=== PATIENT | female | born 1945 | race Caucasian/White ===

== ENCOUNTER 2024-10-19 02:17 | Day surgery (SDC) | payer MEDICARE, OTHER, SELFPAY ==
[2024-10-18 14:20] VITALS: BMI 30.1
--- OUTSIDE RECORDS SUMMARY | 2024-10-19 02:22 | XMS_ITS | Continuity of Care Document ---
Author Organization [facility] Address [address] [facility] [address] [place] [address] Phone Care Team Providers Care Line Pilot Name Role Phone Ignacio Acosta MD Unavailable Unavailable Allergies, Adverse Reactions, Alerts Substance Reaction Status Criticality adhesive tape Unknown Active No Information PROPOXYPHENE NAPSYLATE Unknown Active No In formation acetaminophen Unknown Active No Information Medications Medication Instructions Dosage Effective Dates (start - stop) Status Comments Cequa 0.09 % eye drops in a dropperette instill 1 drop by ophthalmic route 2 times every day into affected eye(s) approximately 12 hours apart 1.00 drop - Active ofloxacin 0.3 % eye drops instill 1 drop by ophthalmic route 4 times every day into affected eye(s) for OD 1.00 drop - Active Pataday Once Daily Relief 0.2 % eye drops instill 1 drop by ophthalmic route every day into affected eye(s) 1.00 drop - Active oasis tears OPHTHALMIC DROPS as needed - Active Cequa 0.09 % eye drops in a dropperette instill 1 drop by ophthalmic route 2 times every day into affected eye(s) approximately 12 hours apart 1.00 drop - No Longer Active Procedures Procedure Date OFFICE/OUTPATIENT VISIT, EST Advance Directives Directive Yes / No Effective Date File Name No Information Encounters Encounter Description Practice Location Reason(s) For Visit Diagnoses Date Provider Providers Copied on Encounter [facility], [address] [facility] [address], [place], [place], [id number], [place] tel:[phone] [facility]LLO No Information 5 Dave Pierre. [address] [facility], [address], [place], [address], [place]. tel:[phone] Referring Provider: Gume Ness, [address] [place] [address] [address], [place], [address]. tel:[phone] OFFICE/OUTPA TIENT VISIT, [facility], [address] [place], [place] [address] [address], [place], [id number], tel:[phone] [facility] Follow Up of Dry eyes (chief complaint) Follow Up of AMT OU (chief complaint) Punctate keratitis, bilateralDry eyes, bilateralSquam ous blepharitis right eye, upper and lower eyelidsSquamou s blepharitis left eye, upper and lower eyelidsMeibomi an gland dysfunction right eye, upper and lower eyelidsMeibomi an gland dysfunction left eye, upper and lower eyelidsMild nonproliferati ve diabetic retinopathy of both eyes without macular edema associated with type 2 diabetes mellitusDrusen of macula of both eyesOpen angle with borderline findings, low risk, bilateral 0 5 Grover Dunaway. [address] [facility], [address], [place], [place], [address], [place]. tel:[phone] Referring Provider: Gume Ness, [address] [place] [address] [address], [place], [address]. tel:[phone] [facility], [address] [place] [address] [address], [address], tel:[phone] [facility] No Information 5 Grover Dunaway. [address] [facility], [address], [place], [place], [address], [place]. tel:[phone] Family History Family Member Type Diagnosis Age At Onset No Information Payers Payer name Insurance type Covered green party ID Authoriza tion(s) [employer] PPO CI [id number] Social History Type Description Quantity Date Captured Comments Sex Female Smoking Status No Information Chief Complaint And Reason For Visit No Information Reason For Referral Reason For Referral No Information Plan Of Treatment Date Type Action Status Appointment Ninfa Davis BOOKED Appointment Ninfa Davis BOOKED History Of Present Illness Encounter Date Complaint History Of Prese nt Illness Follow Up of Dry eyes Follow Up of AMT OU Functional Status Date Functional Assessmen t No Information Instructions Date Instruction Additional Infor mation Impression/Plan Related to Punct ate keratitis, bilateral Impression/Plan Related to Dry e yes, bilateral Impression/Plan Related to Squam ous blepharitis right eye, upper and lower eyelids Impression/Plan Related to Squam ous blepharitis left eye, upper and lower eyelids Impression/Plan Related to Meibo guille gland dysfunction right eye, upper and lower eyelids Impression/Plan Related to Meibo guille gland dysfunction left eye, upper and lower eyelids Impression/Plan Related to Mild nonproliferative diabetic retinopathy of both eyes without macular edema associated with type 2 diabetes mellitus Impression/Plan Related to Druse n of macula of both eyes Impression/Plan Related to Open angle with borderline findings, low risk, bilateral Assessments Type Assessment Date No Information Patient Care Teams Name Effective Dates (start - stop) Status Members No Information
--- OUTSIDE RECORDS SUMMARY | 2024-10-19 02:22 | XMS_ITS | Encounter Summary ---
Author Organization [facility] Address [address] [place] [address] Care Team Providers Care Crepe Machine Operator Name Role Phone Дмитрий Bone MD Primary Care Provider [phone] Tejal Mcduffie MA Unavailable [phone] Javad Johnson MD Unavailable [phone] Reason for Visit * Reason Onset Date Comments Scheduling Appointments 12/14/2019 Called f or DEXA appointment Encounter Details Date Type Department Care Team (Late st Contact Info) Description 12/14/2019 Telephone [facility] [address] [place] [id number] Cherelle Stewart RT Scheduling Appointments (Called for DEXA appointment ) Social History Tobacco Use Types Packs/Day Years Used Date Smoking Tobacco: Never Smokeless Tobacco: Never Alcohol Use Standard Drinks/Week Comments No 0 (1 standard drink = 0.6 oz pur e alcohol) PHQ-2 Answer Date Recorded PHQ-2 Score 0 10/02/2019 Comments No Sex and Gender Information Value Date Recorded Sex Assigned at Not on file 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 Gender Identity Female 10/27/2023 1:08 PM CDT Sexual Orientation Not on file documented as of this encounter Plan of Treatment Not on file documented as of this encounter Visit Diagnoses Not on filedocumented in this encounter Additional Health Concerns Infection Onset Date Last Indicated Resolved Time COVID: Suspected 07/13/2024 07/13/2024 07/13/2024 3:39 PM CDT documented as of this encounter Care Teams Crepe Machine Operator Relationship Specialty Start Date End Date Дмитрий Bone MD [address] [place] [address] PCP - General 06/18/16 Tejal Mcduffie MA [address] [place] [address] [address] [place] [address] ACO Care Senior Director Creative Services 03/04/21 Javad Johnson MD [address] [place] [address] [address] [place] [address] Surgeon Orthopedic Surgery 06/30/23 documented as of this encounter
--- OUTSIDE RECORDS SUMMARY | 2024-10-19 02:22 | XMS_ITS | Continuity of Care Document ---
Author Organization [facility] Address [address] [facility] [address] [place] [address] Phone Care Team Providers Care Bowstring Maker Name Role Phone Gume Barrera OD Unavailable Unavailable Allergies, Adverse Reactions, Alerts Substance Reaction Status Criticality TAPE, OCCLUSIVE ADHESIVE Active No Information Medications Medication Instructions Dosage Effective Dates (start - stop) Status Comments Restasis 0.05 % eye drops in a dropperette instill 1 drop by ophthalmic route every 12 hours into affected eye(s) 1.00 drop - Active Aspir-81 81 mg tablet,delayed release take 1 tablet (81MG) by oral route every day - Active Vitamin D2 50,000 unit capsule take 1 capsule (96013HVMBP) by oral route every week - Active budesonide-formoter ol HFA 80 mcg-4.5 mcg/actuation Aerosol Inhaler inhale 2 puff by inhalation route 2 times every day in the morning and evening 2.00 puff - Active ipratropium-albuter ol 18 mcg-103 mcg/actuation Aerosol Inhaler inhale 2 puff by inhalation route 4 times every day - Active celecoxib 200 mg capsule take 1 capsule (200MG) by oral route 2 times every day as needed 200 MG - Active carvedilol phosphate ER 40 mg capsule,ext.release 24hr multiphase take 1 capsule (40MG) by oral route every day 40 MG - Active niacin ER 1,000 mg tablet,extended release take 1 tablet (1000MG) by oral route every day at bedtime 1000 MG - Active mometasone 110 mcg (30 doses) Breath Activated Powder Inhaler inhale 2 puff (220MCG) by inhalation route every day in the evening 220 MCG - Active Vitamin B-12 2,500 mcg sublingual tablet - Active B Complex tablet,extended release - Active metformin 500 mg tablet take 1 tablet (500MG) by oral route 2 times every day with morning and evening meals 500 MG - Active montelukast 10 mg tablet take 1 tablet (10MG) by oral route every day in the evening 10 MG - Active potassium chloride ER 10 mEq capsule,extended release take 2 capsule (20MEQ) by oral route every day with food 20 MEQ - Active simvastatin 40 mg tablet take 1 tablet (40MG) by oral route every day in the evening 40 MG - Active levothyroxine 50 mcg capsule take 1 capsule (50MCG) by oral route every day 50 MCG - Active telmisartan 80 mg-hydrochlorothiaz jil 12.5 mg tablet take 1 tablet by oral route every day 1.00 tablet - Active Lotemax 0.5 % eye gel drops instill 1 Drop by ophthalmic route 4 times every day for 2 weeks in to both eyes 1 Drop - No Longer Active Procedures Procedure Date Revise Eyelashes [place] Tears Plus Sales Tax Office/outpatient Visit, Est Visual Field Examination(s) Fundus Photography W/ Report VEP Testing Close Tear Duct Opening Close Tear Duct Opening Permanent Tear Duct Plug Tear Osmolarity Microfluidic Analysis Tear Osmolarity Microfluidic Analysis Refraction Post-op Follow-up Visit Amniotic Membrane Placement Supply Code Office/outpatient Visit, Est Special Eye Evaluation Visual Field Examination(s) SCODI, Posterior Segment Close Tear Duct Opening Close Tear Duct Opening Tear Osmolarity Microfluidic Analysis No Tear Osmolarity Microfluidic Analysis No Office/outpatient Visit, Est Close Tear Duct Opening Close Tear Duct Opening Eye Exam Established Pt Eye Photography Close Tear Duct Opening Close Tear Duct Opening Tear Osmolarity Microfluidic Analysis Or Tear Osmolarity Microfluidic Analysis Or EZ Tears Sales Tax Office/outpatient Visit, New Dilate Tear Duct Opening Dilate Tear Duct Opening Fundus Photography W/ Report Advance Directives Directive Yes / No Effective Date File Name No Information Encounters Encounter Description Practice Location Reason(s) For Visit Diagnoses Date Provider Providers Copied on Encounter [facility], [address] [place] [address] [address], [place], [place], [id number], [place] tel:[phone] [facility] Irritation , eyelids (chief complaint) Trichiasis of eyelid 3201 4 Bruce OD Gume. [address] [facility], [address], [place], [address], [place]. tel:[phone] Referring Provider: Mihir Adkins OD P, [address] [place], [address] . tel:[phone] [facility], [address] [place] [address] [address], [place], [place], [address], [place] tel:[phone] [facility] [place] No Information 4 Jed OD Mihir. [address] [place], [place], [address], [place]. tel:[phone] Office/outpa tient Visit, Est [facility], [address] [place] [address] [address], [place], [place], [address], [place] tel:[phone] [facility] CUPPING OF OPTIC DISCDiabetes Mellitus Type 2, UncomplicatedTEAR FILM INSUFFIC NOS 0-201 4 Bruce OD Gume. [address] [facility], [address], [place], [address], [place]. tel:[phone] Referring Provider: Gume Renee, [address], [address]. tel:[phone] [facility], [address] [place] [address] [address], [place], [place], [address], [place] tel:[phone] [facility] [place] PUNCTATE KERATITIS 4 Bruce OD Gume. [address], [address], [place]. tel:[phone] Referring Provider: Gume Renee, [address], [address]. tel:[phone] [facility], [address] [place] [address] [address], [place], [place], [address], [place] tel:[phone] [facility] [place] PUNCTATE KERATITIS 4 Bruce LINDA Dunaway. [address], [facility], [place]. tel:[phone] Referring Provider: Gume Renee, [address], [facility]. tel:[phone] Office/outpa tient Visit, Est [facility], [address] [place] [address] [address], [place], [place], [address], [place] tel:[phone] [facility] [place] PRIM OPEN ANGLE GLAUCOMATEAR FILM INSUFFIC NOSDiabetes Mellitus Type 2, UncomplicatedSENIL E NUCLEAR CATARACT 3 Bruce LINDA Dunaway. [address], [facility], [place]. tel:[phone] Referring Provider: Gume Renee, [address], [facility]. tel:[phone] Office/outpa tient Visit, Est [facility], [address] [place] [address] [address], [place], [place], [address], tel:[phone] [facility] No Information 3 Bruce OD Gume. [address], [facility], . tel:[phone] Referring Provider: Gume Renee, [address], [facility]. tel:[phone] [facility], [address] [place] [address] [address], [place], [place], [address], tel:[phone] [facility] No Information 3 Bruce OD Gume. [address], [facility], . tel:[phone] Referring Provider: Gume Renee, [address], [facility]. tel:[phone] Office/outpa tient Visit, [facility], [address] [facility] [address], [place], [place], [address], tel:[phone] [facility] No Information 3 Bruce OD Gume. [address], [facility], . tel:[phone] Referring Provider: Gume Renee, [address], [facility]. tel:[phone] Family History Family Member Type Diagnosis Age At Onset Unknown Problem (finding) Diabetes mellitus Payers Payer name Insurance type Covered republican ID Authoriza tion(s) [place] [id number] [facility] Out Of State [id number] Social History Type Description Quantity Date Captured Comments Alcohol Use Details Unknown Caffeine Use Details Unknown Tobacco Use Status No Information Smoking Status No Information Sex Female Chief Complaint And Reason For Visit From encounter dated '10/10/2013 13:30'. Irritation, eyelids (chief complaint). Description: The 68 year old female presents for evaluation of Irritation, eyelids. in the right eye and left eye. It started about 1 week(s) ago. It occurs allthe time. The onset was gradual. It affects VA not affected. The symptom is frequent. Pt c/o itching of eyelids and nasal corners of eyes OD>OS frequently over the past week. Pt noticed a sma ll red bump LLL and has some irritation around that area. Pt still using Restasis, needs more Oasistears. Having seasonal allergies right now. Reason For Referral Reason For Referral No Information History Of Present Illness Encounter Date Complaint History Of Prese nt Illness Irritation, eyelids The 68 year old female presents for evaluation of Irritation, eyelids. in the right eye and left eye. It started about 1 week(s) ago. It occurs all the time. The onset was gradual. It affects VA not affected. The symptom is frequent. Pt c/o itching of eyelids and nasal corners of eyes OD>OS frequently over the past week. Pt noticed a small red bump LLL and has some irritation around that area. Pt still using Restasis, needs more [place] tears. Having seasonal allergies right now. Functional Status Date Functional Assessmen t No Information Instructions Date Instruction Additional Infor leonardo - Return in 4 months with Gume Barrera O.D. for follow up exam Related to Trichiasis of eyelid - performed epilatio n of trichiasis LLL with forcepsbegin Lotemax QID OU x2 weeksthen d/c Lotemaxbegin warm conpresses BID OScont Restasis BID OUcont [place] Tears PRN OUpt to call if symptoms worsen or do not improve Related to Trichiasis of eyelid - Return in 6 months with Gume Barrera O.D. for Glaucoma follow up with GDx and plugs. Related to TEAR FILM INSUFFIC NOS CUPPING OF OPTIC DIS C Diabetes Mellitus Type 2, Uncomplicated TEAR FILM INSUFFIC NOS - Borderline glaucoma, intraocular pressure stable without medication. Continue without medication and observe.Diabetes type II: no background retinopathy, no signs of neovascularization noted. Discussed ocular and systemic benefits of blood sugar control.Dryness under good control with restasis and plugs. Placed 0.4mm ED plugs today in RLL/LLLcataracts beginning to cause issues. discussed CE. Educational materials provided:Cataract extraction/lens. Related to TEAR FILM INSUFFIC NOS - Return in 3 months with Gume Barrera O.D. for Diopsys, Disc Photos, Visual Field (24-2), Gonioscopy and Tear Osmolarity. Related to PUNCTATE KERATITIS good results with Pr okera OD - Zylet TID x 2 days OD then D/Ccont Restasis BID and [place] prn return in 3mo for yearly with VEP, HVF, OM, osmo and 0.4mm ED plugspt thinks OD plug is out now so I told her to RTO prn if needs replaced Related to PUNCTATE KERATITIS - Return in 1 week w mari Barrera O.D. for post op exam. Related to PUNCTATE KERATITIS PUNCTATE KERATITIS - placed Prokera Slim OD todaycall with p/r/<VAneeds glc w/u and plugs in July. can elect to do earlier if desires. Related to PUNCTATE KERATITIS - Return in 6 months with Gume Barrera O.D. 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 GDx and HVF show possible thinning and depression sup ONH/inf VF OD. discussed with pt and will monitorTear Osmo 309/308 today. Placed 0.4mm ED plugs RLL/LLL. [place] tears prn. Restasis BID OUstressed glycemic controlmild night driving issues. monitor. Educational materials provided:Cataract. 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
--- OUTSIDE RECORDS SUMMARY | 2024-10-19 02:22 | XMS_ITS | Clinical Summary ---
Author Organization [facility] Address [address] [place] [address] Care Team Providers Care Fitting Room Associate Name Role Phone Luis Noriega MD Unavailable [phone] Maribel Carrillo MD Unavailable Konrad Carpenter MD Unavailable Jess Brandt MD Unavailable [phone] Дмитрий Bone MD Primary Care Provider [phone] Genaro Lake MD Unavailable [phone] Marcelino Berumen MD Unavailable [phone] Source Comments [facility],non-owned Affiliates and Associated Physician Practices is amultiple site organization consisting of ambulatory clinics and hospital sitesin [place], [place]. This disclosure is being madepursuant to the Care Everywhere program and may not contain all information available regarding this patient. Last updated 17.[facility] Allergies Active Allergy Reactions Criticality Noted Date Comments Acetaminophen Adhesive Sensitivity 03/15/2012 SKIN REDDENS Benazepril Low Other reaction(s): Cough Reaction: Cough, Propoxyphene N-Apap 03/15/2012 Medications * Be aware that medications may not be up to date on this document. Alwaysverify current medications with the patient. levothyroxine (Synthroid) 50 MCG tablet Take 1 (one) tablet by mouth daily before breakfast Instructed to take AM of surgery Active aspirin (ASPIRIN) 81 MG tablet Take 1 (one) tablet by mouth once daily Active meclizine (ANTIVERT) 25 MG tablet 0 7 Active terconazole (TERAZOL 7) 0.4 % vaginal cream Insert 1 Applicator into the vagina at bedtime 1 Tube 2 7 Active DULoxetine (CYMBALTA) 30 MG capsule Take 1 (one) capsule by mouth 2 times daily 8 Active omeprazole (PRILOSEC) 20 MG capsule Take 1 (one) capsule by mouth once daily 1 Active RESTASIS 0.05 % ophthalmic suspension 2 Active Januvia 100 MG tablet 3 Active amLODIPine (Norvasc) 10 MG tablet Take 1 (one) tablet by mouth once daily 4 Active cetirizine (ZyrTEC) 10 MG tablet Active donepezil (Aricept) 5 MG tablet Take 1 (one) tablet by mouth at bedtime Active furosemide (Lasix) 40 MG tablet Take 1 (one) tablet by mouth once daily Active metoprolol succinate XL 24hr (Toprol XL) 25 MG tablet Take 1 (one) tablet by mouth once daily Active potassium chloride ER (Klor-Con M) 10 MEQ tablet Take 1 (one) tablet by mouth once daily Active rosuvastatin (Crestor) 20 MG tablet Take 1 (one) tablet by mouth once daily Active loratadine (Claritin) 10 MG tabletIndications :Chronic allergic rhinitis Take 1 (one) tablet by mouth once daily 90 tablet 4 5 Active albuterol-ipratro pium (Duo-Neb) 0.5-2.5 (3) MG/3ML nebulizer solutionIndicatio ns:Moderate persistent asthma without complication (HCC) Inhale 3 mL by mouth 4 times daily DX: J45.909 360 mL 5 Active Active Problems Problem Noted Date Diagnosed Date Gastroesophageal reflux disease 05/18/2019 Overview (03/26/2020): Last Assessment & Plan: Intermittently symptomatic. Patient was advised to continue omeprazole p.r.n. Moderate episode of recurrent major depressive d isorder 02/21/2019 Overview (03/26/2020): Last Assessment & Plan: Again spoke at length re: [place], family farm & children. Doing well. Reports good control of depression w/current regimen. No changes to be made at this time. Reviewed med Ses & scheduling. Reviewed red flags. Chronic allergic rhinitis 06/16/2018 Hyperlipidemia associated with type 2 diabetes m cj 06/28/2017 Overview (03/26/2020): Last Assessment & Plan: We will check labs and make adjustments to medications as needed. Patient should focus on limiting bad fats in the diet and using exercise as a way to improve the lipid status. Secondary prevention. Reviewed medications. Lipid panel ordered; will call w/results when rec'd. Denies any statin Ses. Reviewed diet/exercise recommendations. Reviewed red flags. Pure hypercholesterolemia 01/20/2016 Overview (06/22/2017): Overview: Pure hypercholesterolemia Last Assessment & Plan: Goal of treatment , LDL cholesterol less than 100 ( less than 70 in patients with history of heart attacks and / or strokes ) NonHDL cholesterol goal less than 130 ( less than 100 in patients with history of heart attacks and / or strokes ) Continue statin therapy Seborrheic eczema 02/25/2014 Overview (06/22/2017): Overview: Seborrheic dermatitis Pain in joint, shoulder region 09/05/2012 Asthma 05/02/2012 Knee joint replacement by other means 04/26/2012 SUNIL (obstructive sleep apnea) 03/30/2012 Shortness of breath 03/30/2012 Osteoarthrosis involving lower leg 11/30/2011 Overview (06/14/2015): 2015 IMO Updt Allergic rhinitis Disorder of thyroid Overview (12/19/2014): Hypertension Asthma Hypothyroid Sleep apnea Immunizations Immunization Administration Dates Next Due Covid Moderna primary monova lent 12+ yr 0.5mL 06/24/2020,05/22/2020 INFLUENZA VACCINE 12/13/2022,,12/14/2020,2019,01/23/2019,12/06/2017,01/03/2014 INFLUENZA VACCINE, ADJUVANTE D, QUADR. (FLUAD QUADRIVALENT; 65Y+) (AIIV4) 12/14/2020 INFLUENZA VACCINE, HIGH-DOSE , QUADR. (FLUZONE HIGH-DOSE QUADRIVALENT; 65Y+), 0.7 ML (HD-IIV4) 01/24/2024,12/13/2022,02/10/2022,2019,12/06/2017,01/03/2014 INFLUENZA VACCINE, HIGH-DOSE , TRIV. (FLUZONE HIGH-DOSE TRIVALENT; 65Y+) (HD-IIV3) 01/24/2024,12/06/2017 INFLUENZA VACCINE, QUADR. (F LUZONE; FLULAVAL; FLUARIX; AFLURIA QUADRIVALENT; 6MO+), 0.5 ML (IIV4) 12/07/2016,01/28/2016 MODERNA SARS-COV-2 COVID-19 VACCINE 0.25ML 03/19/2021 PNEUMOCOCCAL PCV20 CONJ VAC IM 05/11/2023 PNEUMOCOCCAL PPSV23 06/23/2016,07/09/2014,2009 Pneumococcal Pcv13 Conj 06/21/2014 TD (AGE 7-ADULT) 09/25/2009 TDAP (7yrs+) 03/24/2020,12/07/2016 Td (Adult), 2 Lf Tetanus Tox oid, Adsorbed, Pf 09/25/2009 ZOSTER VACCINE, LIVE 03/21/2012 Zoster Hzv Vacc Recombinant Inj Im 11/19/2019, Family History Medical History Relation Name Comments Hypertension Brother CAD (Coronary Artery Disease) Father Hypertension Father Cancer - Colon Mother Hypertension Mother Relation Name Status Comments Brother Daughter Schw[place]man [place] Syndrome Father Grandchild Schwapman Diamo [place] Syndrome Mother Social History Tobacco Use Types Packs/Day Years Used Date Smoking Tobacco: Never Smokeless Tobacco: Never Tobacco Cessation:Counseling Given: Not Answered Alcohol Use Standard Drinks/Week Comments No 0 (1 standard drink = 0.6 oz pur e alcohol) PHQ-2 Answer Date Recorded Patient Health Questionnaire-2 Score 0 06/20/2024 Comments No Sex and Gender Information Value Date Recorded Sex Assigned at Not on file Legal Sex Female 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 Gender Identity Not on file Sexual Orientation Not on file Last Filed Vital Signs Vital Sign Reading Time Taken Comments Blood Pressure 112/66 06/20/2024 11:23 AM CDT Pulse 88 06/20/2024 11:23 AM CDT Temperature 36.8 C (98.2 F) 06/20/2024 11:23 AM CDT Respiratory Rate 18 06/20/2024 11:23 AM CDT Oxygen Saturation 97% 06/20/2024 11:23 AM CDT roomair Inhaled Oxygen Concentration 21% 06/19/2018 1 2:04 PM CDT roomair Weight 71.7 kg (158 lb) 06/20/2024 11:23 AM CDT Height 152.4 cm (5') 06/20/2024 11:23 AM CDT Body Mass Index 30.86 06/20/2024 11:23 AM CDT Plan of Treatment Health Maintenance Due Date Last Done Comments MEDICARE AWV 12 MONTHS 1945 Respiratory Syncytial Virus (RSV) Vaccine Pt: or over 60 yrs (1 - 1-dose 75+ series) 2018 DIABETES RETINOPATHY SCREENING 03/26/2020 DIABETES-FOOT EXAM WITH MONOFILAMENT 03/26/2020 DIABETES-SERUM CREATININE 02/10/20232021, 02/10/2022, 11/01/2012, Additional history exists COVID-19 VACCINE (2023- season) 2023 03/19/2021, 06/24/2020, 05/22/2020 DIABETES - URINE PROTEIN SCREENING 03/21/2024 07/20/2022, 05/25/2018 DIABETES-HGB A1C 10/25/2024 04/27/2024, 11/2023, 11/23/2022, Additional history exists INFLUENZA VACCINE (#1) 2024 , 01/24/2024, 12/13/2022, Additional history exists DTAP/TDAP/TD VACCINES (5 - Td or Tdap) 03/24/2030 03/24/2020, 12/07/2016, 09/25/2009, Additional history exists ZOSTER VACCINE Completed 11/19/2019, 06/2018, 03/21/2012 BONE DENSITY TESTING Completed 08/20/2022, 12/17/2019, 09/28/2018, Additional history exists PNEUMOCOCCAL VACCINE 50+ Completed 024, 06/23/2016, 07/09/2014, Additional history exists DEPRESSION SCREENING Completed 06/20/2024 HEPATITIS B VACCINE Aged Out No longe r eligible based on patient's age to complete this topic HIB VACCINE Aged Out No longer eligi ble based on patient's age to complete this topic HPV VACCINE Aged Out No longer eligi ble based on patient's age to complete this topic MENINGOCOCCAL (Group B) VACCINE SHARED DECISION-MAKING Aged Out No longer eligible based on patient's age to complete this topic MENINGOCOCCAL GROUPS A/C/Y/W VACCINE Aged Out No longer eligible based on patient's age to complete this topic Procedures Procedure Name Priority Date/Time Associated Diagnosis Comments COMPREHENSIVE METABOLIC PANEL Routine 11/01/2012 2:34 PM CDT Preoperative Examination, Unspecified from Last 3 Months or Most Recently Relevant to Health Maintenance Results * (ABNORMAL) COMPREHENSIVE METABOLIC PANEL (11/01/2012 2:34 PM CDT) Glucose 94 74 - 106 mg/dL 11/01/2012 3:16 PM CDT [facility] Sodium 143 136 - 145 mmol/L 11/01/2012 3:16 PM CDT [facility] Potassium 3.6 3.5 - 5.1 mmol/L 11/01/2012 3:16 PM CDT [facility] Chloride 105 98 - 107 mmol/L 11/01/2012 3:16 PM CDT [facility] CO2 32(H) 22 - 31 mmol/L 11/01/2012 3:16 PM CDT [facility] Calcium 9.1 8.5 - 10.1 mg/dL 11/01/2012 3:16 PM CDT [facility] Anion Gap 6 5 - 15 mmol/L 11/01/2012 3:16 PM CDT [facility] BUN 29(H) 7 - 21 mg/dL 11/01/2012 3:16 PM CDT [facility] Creatinine 0.60 0.50 - 1.30 mg/dL 11/01/2012 3:16 PM CDT [facility] eGFR by MDRD >60 >60 ml/min/1.7 3m2 11/01/2012 3:16 PM CDT [facility] eGFR by MDRD >60 >60 ml/min/1.7 3m2 11/01/2012 3:16 PM CDT [facility] Alkaline Phosphatase 100 38 - 126 U/L 11/01/2012 3:16 PM CDT [facility] ALT 26 12 - 78 U/L 11/01/2012 3:16 PM CDT [facility] AST 15 5 - 40 U/L 11/01/2012 3:16 PM CDT [facility] Protein Total 7.1 6.4 - 8.2 gm/dL 11/01/2012 3:16 PM CDT [facility] Albumin 3.8 3.4 - 5.0 gm/dL 11/01/2012 3:16 PM CDT [facility] Bilirubin Total 0.2 0.2 - 1.0 mg/dL 11/01/2012 3:16 PM CDT [facility] Blood BLOOD SPECIMEN / Unknown Lab Venipuncture / Unknown 11/01/2012 2:34 PM CDT 11/01/2012 2:56 PM CDT us Jess Brandt MD LAB - CHEMISTRY ORDERABLES Final Result [facility] [address] [place] [address] from Last 3 Months or Most Recently Relevant to Health Maintenance Insurance MEDICARE [employer] [place] Advance Directives Documents on File Type Date Recorded 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 Expl anation Adv Directive/Living Will/POA 04/09/2012 11:34 AM * FULL RESUSCITATION (Latest Code Status on File) Date Activated Date Inactivated Comments 04/05/2012 8:35 PM 04/08/2012 2:49 PM Care Teams Fitting Room Associate Relationship Specialty Start Date End Date Дмитрий Bone MD [address] [place] [id number] PCP - General Internal Medicine 06/20/14 Luis Noriega MD Orthopedic Surgery 11/30/11 [place] [address] [facility] [address] [place] [address] Allergy and Immunology-OLD 07/03/12 [place] [address] [facility] [address] [place] [address] Pulmonary Disease 02/06/13 [place] [address] [facility] [address] [place] [address] Orthopedic Surgery 05/15/13 [place] [address] [facility] [address] [place] [address] Pulmonary Disease 08/12/15 [place] [address] [address] Physical Medicine and Rehabilitation 06/21/22
--- OUTSIDE RECORDS SUMMARY | 2024-10-19 02:22 | XMS_ITS | Clinical Summary ---
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 Gender Identity Not on file Sexual Orientation Not on file Plan of Treatment Health Maintenance Due Date Last Done Comments DIABETES ANNUAL RETINAL EXAM 1961 DIABETES MICROALBUMIN ANNUAL SCREEN 1961 LDL CHOLESTEROL ANNUAL 1961 RSV VACCINE (60+ or ) (1 - 1-dose 75+ series) 2018 DIABETES ANNUAL FOOT EXAM 12/29/2022 12/29/2021 DIABETES HBA1C Q 6 MONTHS 01/20/2023 07/20/2022, COVID-19 Vaccine (2023-2 5 season) 2023 03/19/2021, 06/24/2020, 05/22/2020 INFLUENZA VACCINE (#1) 2024 4, 01/24/2024, 12/13/2022, Additional history exists OSTEOPOROSIS SCREENING 08/21/2027 3, 08/20/2022, 12/17/2019, Additional history exists DTAP/TDAP/TD VACCINES (3 - T d or Tdap) 03/24/2030 03/24/2020, 12/07/2016 COLORECTAL SCREENING Discontinued 12/26/2018 Colorectal Cancer Screening Discontinued ZOSTER VACCINE Completed 11/19/2019, 06/2018, 03/21/2012 PNEUMOCOCCAL VACCINE 50+ YEARS Completed 0 05/11/2023, 06/23/2016, 07/09/2014, Additional history exists FIT-DNA Q 3 years Discontinued FIT/FOBT Q 1 year Discontinued Flex Sig/CT Colonography Q 5 years Discontinued Insurance MEDICARE PART A AND B GENERIC PAYOR
--- OUTSIDE RECORDS SUMMARY | 2024-10-19 02:22 | XMS_ITS | Encounter Summary ---
Author Organization [facility] Address [address] [place] [address] Phone Care Team Providers Care In Shop Service Technician Name Role Phone Дмитрий Bone MD Primary Care Provider [phone] Tejal Mcduffie MA Unavailable Javad Johnson MD Unavailable [phone] Encounter Details Date Type Department Care Team (Late st Contact Info) Description 10/02/2024 Telephone [place] [id number] [facility] Advanced Medicine 6th [place] [address] [place] [address] Elvira Coles Social History Tobacco Use Types Packs/Day Years Used Date Smoking Tobacco: Never Smokeless Tobacco: Never Alcohol Use Standard Drinks/Week Comments No 0 (1 standard drink = 0.6 oz pur e alcohol) OASIS D0700: Social Isolation Answer Da te Recorded Frequency of experiencing loneliness or isolatio n Never 07/26/2023 OASIS A1250: Transportation Answer Date Recorded Lack of Transportation (Medical) No 07/26/2023 Lack of Transportation (Non-Medical) No 07/26/2023 Patient Unable or Declines to Respond No 07/26/2023 OASIS B1300: Health Literacy Answer Win e Recorded Frequency of needing help to read materials from doctor or pharmacy Never 07/26/2023 AUDIT-C Answer Date Recorded Q1: How often do you have a drink containing alcohol? Never 11/24/2023 Q2: How many drinks containi ng alcohol do you have on a typical day when you are drinking? Patient does not drink Q3: How often do you have si x or more drinks on one occasion? Never 11/24/2023 PHQ-2 Answer Date Recorded PHQ-2 Total Score (If total score is 3 or more points, staff should administer the PHQ-9) 0 02/22/2024 PHQ-9 Answer Date Recorded PHQ-9 Total Score 5 06/29/2023 Personal Safety Answer Date Recorded Have you ever been in or are you currently in a harmful physical or emotional relationship or is someone making you feel afraid or unsafe? 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 Gender Identity Female 10/27/2023 1:08 PM CDT Sexual Orientation Not on file documented as of this encounter Plan of Treatment Not on file documented as of this encounter Visit Diagnoses Not on filedocumented in this encounter Care Teams In Shop Service Technician Relationship Specialty Start Date End Date Дмитрий Bone MD [address] [place] [address] PCP - General 06/18/16 Tejal Mcduffie, MA [address] [place] [address] [address] [place] [address] ACO Care Bow Making Machine Operator 03/04/21 Javad Johnson MD [address] [facility] [facility] [address] [place] [address] Surgeon Orthopedic Surgery 06/30/23 documented as of this encounter
--- OUTSIDE RECORDS SUMMARY | 2024-10-19 02:23 | XMS_ITS | Clinical Summary ---
Author Organization [facility] Address [address] [place] [address] Care Team Providers Care Bottle Inspector Name Role Phone Дмитрий Boen MD Primary Care Provider [phone] Tejal Mcduffie MA Unavailable [phone] Javad Johnson MD Unavailable [phone] Allergies Active Allergy Reactions Criticality Noted Date Comments Acetaminophen Unknown 07/21/2024 Adhesive Tape-Silicones Rash Medium Benazepril Cough Low Reaction: Cough, Propoxyphene Nausea & Vomiting Low Propoxyphene Napsylate Unknown 07/21/2024 Propoxyphene-Acetaminoph en Nausea & Vomiting,Unknown Low Medications wheat dextrin 3 gram/3.8 gram powder 1 teaspoon daily 236 g 11 020 Active ipratropium-albut Marcin (DUO-NEB) 0.5-2.5 mg/3 mL nebulizer solution Inhale 3 mL 4 (four) times a day 022 Active hypochlorous acid-sodium chlor 0.01 % spray,non-aerosol Apply topically Active olopatadine (PATANOL) 0.1 % ophthalmic solution 1 drop 2 (two) times a day Active hydrocortisone (ANUSOL-HC) 2.5 % rectal cream Insert into the rectum 4 (four) times a day as needed for hemorrhoids (rectal discomfort) Apply to affected areas 30 g Active Xiidra 5 % dropperette Active lancets (OneTouch Delica Lancets) 30 gauge miscIndications:T ype 2 diabetes mellitus with hyperglycemia, without long-term current use of insulin ([facility]) Use to test blood glucose 1 time daily Dx: E11.9 Non Insulin Dependent 100 each 11 023 Active OneTouch Ultra2 Meter misc USE TO CHECK BLOOD SUGAR DAILY Active blood glucose diagnostic (OneTouch Ultra Test) stripIndications: Type 2 diabetes mellitus with hyperglycemia, without long-term current use of insulin ([facility]) USE TO CHECK BLOOD SUGAR 1 TIME DAILY. ONE TOUCH ULTRA TEST STRIPS. NON INSULIN DEPENDENT DX: E11.9 100 strip 3 024 Active senna-docusate (PERICOLACE) 8.6-50 mgIndications:con stipation Take 2 tablets by mouth 2 (two) times a day 60 tablet 2 Active aspirin 81 mg enteric coated tablet Take 1 tablet (81 mg total) by mouth daily Active blood glucose diagnostic (glucose blood) strip Use as direct to test blood sugar daily 100 each 024 2024 Active lancets 33 gauge misc Use as directed to test blood sugars 100 each 3 024 Active cetirizine (ZyrTEC) 10 mg tablet TAKE ONE TABLET EVERY DAY 30 tablet 2 Active potassium chloride ER 10 mEq CR tablet TAKE ONE TABLET EVERY DAY 100 tablet 1 025 Active furosemide (LASIX) 40 mg tablet TAKE ONE TABLET EVERY DAY 100 tablet [address] (CYMBALTA) 30 mg capsuleIndication s:Moderate episode of recurrent major depressive disorder (HCC) TAKE 1 CAPSULE (30 MG TOTAL) BY MOUTH 2 (TWO) TIMES A DAY 180 capsule 025 2025 Active omeprazole (PriLOSEC) 20 mg capsuleIndication s:Gastroesophagea l reflux disease, unspecified whether esophagitis present TAKE 1 CAPSULE (20 MG TOTAL) BY MOUTH DAILY 90 capsule Active levothyroxine (SYNTHROID) 50 mcg tabletIndications :Acquired hypothyroidism TAKE 1 TABLET (50 MCG TOTAL) BY MOUTH DAILY 90 tablet 11 Active metoprolol XL (TOPROL-XL) 25 mg extended release tablet Take 1 tablet (25 mg total) by mouth daily 90 tablet 2 025 Active tiZANidine (ZANAFLEX) 2 mg tablet Take 1 tablet (2 mg total) by mouth nightly as needed for muscle spasms 20 tablet Active ofloxacin (OCUFLOX) 0.3 % ophthalmic solution Administer 1 drop into affected eye(s) every 6 hours Active naproxen sodium 220 mg capsule Take 220 mg by mouth 2 (two) times a day Active Jardiance 10 mg tabletIndications :type 2 diabetes mellitus Take 1 tablet (10 mg total) by mouth daily 30 tablet 11 025 2025 Active donepeziL (ARICEPT) 10 mg tablet Take 1 tablet (10 mg total) by mouth daily with breakfast 30 tablet 5 Active amLODIPine (NORVASC) 10 mg tablet TAKE ONE TABLET EVERY DAY 90 tablet 1 025 Active SITagliptin phosphate (Januvia) 100 mg tabletIndications :Type 2 diabetes mellitus with diabetic polyneuropathy, without long-term current use of insulin (HCC) TAKE ONE TABLET EVERY DAY 90 tablet 3 025 Active rosuvastatin (CRESTOR) 20 mg tabletIndications :Hyperlipidemia associated with type 2 diabetes mellitus (HCC) TAKE ONE TABLET EVERY DAY 100 tablet 5 025 Active montelukast (Singulair) 10 mg tabletIndications :Non-seasonal allergic rhinitis due to pollen Take 1 tablet (10 mg total) by mouth nightly 90 tablet 3 023 2024 Discontinued(A lternate therapy) loratadine (CLARITIN) 10 mg tabletIndications :Non-seasonal allergic rhinitis, unspecified trigger Take 1 tablet (10 mg total) by mouth daily as needed for allergies 90 tablet 024 2024 Discontinued(A lternate therapy) fluticasone propionate (FLONASE) 50 mcg/actuation nasal sprayIndications: Non-seasonal allergic rhinitis, unspecified trigger Administer 2 sprays into each nostril daily 3 each 024 2024 Discontinued(P atient Reported) rosuvastatin (CRESTOR) 20 mg tabletIndications :Hyperlipidemia associated with type 2 diabetes mellitus (HCC) TAKE 1 TABLET BY MOUTH DAILY 100 tablet 5 024 2024 Discontinued amLODIPine (NORVASC) 10 mg tabletIndications :hypertension Take 1 tablet (10 mg total) by mouth daily 90 tablet 3 024 2024 Discontinued SITagliptin phosphate (JANUVIA) 100 mg tabletIndications :type 2 diabetes mellitus Take 1 tablet (100 mg total) by mouth daily 90 tablet 3 024 2024 Discontinued donepeziL (ARICEPT) 5 mg tablet TAKE 1 TABLET (5 MG TOTAL) BY MOUTH NIGHTLY 90 tablet 11 025 2024 Discontinued donepeziL (ARICEPT) 5 mg tabletIndications :Mild to Moderate Alzheimer's Type Dementia Take 1 tablet (5 mg total) by mouth daily for 14 days, THEN 2 tablets (10 mg total) daily for 14 days. 42 tablet 025 2024 Discontinued(A lternate therapy) Active Problems Problem Noted Date Diagnosed Date Fall 07/10/2024 Assessment & Plan (07/10/2024 10:03 AM CDT): Safety reviewed. Avoid walking on uneven surfaces. Can use cane p.r.n.. Neck pain 07/10/2024 Assessment & Plan (07/10/2024 10:04 AM CDT): Acute neck muscle strain post-fall with pain and stiffness. No neurological deficits. X-ray ordered. - Order cervical spine [facility] at [facility]. - Prescribe mild muscle relaxant for bedtime use. - Continue naproxen and topical treatments. - Advise ice packs for 15 minutes. Mild cognitive impairment 03/05/2024 Assessment & Plan (03/05/2024 2:17 PM CORRECTIONAL CLASSIFICATION COUNSELOR): Overall, stable cognitive testing. Continue donepezil/Aricept 5 mg daily. May benefit from increasing duloxetine/Cymbalta dose to improve mood. Encouraged patient to keep using her CPAP machine. Follow-up scheduled with Dr. Acuna in September 2024. Annual physical exam 02/29/2024 Assessment & Plan (02/29/2024 8:19 AM CORRECTIONAL CLASSIFICATION COUNSELOR): Focus of exam is prevnetative in nature. Reviwed immunizaiotns, reivewed sun/skin cancer screening. Reviewed age and comorbidity appropriate screening and will montior response. Encourage fall prevention and healthy food choices. Moderate late onset Alzheime r's dementia without behavioral disturbance, psychotic disturbance, mood disturbance, or anxiety 02/05/2024 Assessment & Plan (02/29/2024 8:18 AM CORRECTIONAL CLASSIFICATION COUNSELOR): Continues on donepezil and will monitor response. No side effects noted. Assessment & Plan (02/05/2024 7:31 AM CORRECTIONAL CLASSIFICATION COUNSELOR): Contineus on donepezil. Continue f/u with [facility] at [facility]. Continues to adapt well with list making and note taking. Dysphagia 02/05/2024 Assessment & Plan (02/05/2024 7:31 AM CORRECTIONAL CLASSIFICATION COUNSELOR): COntinue f/u with GI for probable EGD and will montiro eropsnse. Fecal soiling 02/05/2024 Assessment & Plan (02/05/2024 7:32 AM CORRECTIONAL CLASSIFICATION COUNSELOR): Fecal urgency and will motnrioresponse. BMI 30.0-30.9,adult 02/05/2024 Assessment & Plan (02/29/2024 8:18 AM CORRECTIONAL CLASSIFICATION COUNSELOR): ENcourage healthy food chocies and continues to be active at [facility] and in exercise program. Obesity (BMI 30.0-34.9) 02/05/2024 Assessment & Plan (02/29/2024 8:18 AM CORRECTIONAL CLASSIFICATION COUNSELOR): As above. Pitting edema 01/17/2024 Assessment & Plan (01/17/2024 8:42 AM CDT): Biltareal 2+ pitting edema noted with no other signs of fluid overload. Ordered Lasix 20 mg x 7 days. Will F/U with Dr. Bone on 01/24/2024. Advised to check weight after 2-3 days to see if weight is coming off. Greater trochanteric bursitis of left hip 2023 Hoarseness 01/19/2023 Assessment & Plan (01/19/2023 8:43 PM CDT): New onset. She does have postnasal drip which is being treated. Also being treated for gastroesophageal reflux disease. She is referred to ENT for evaluation. Post-nasal drip 01/19/2023 Assessment & Plan (01/19/2023 8:44 PM CDT): Describes having thick phlegm in the morning, associated with nausea. She was counseled that her symptoms are consistent with rhinitis with postnasal drip. Zyrtec was prescribed. Advised to follow up with her PCP. Hypertension associated with type 2 diabetes jennie litus 11/23/2022 Assessment & Plan (09/25/2024 11:42 AM CDT): Chronic problem. Controlled on current amlodipine 10 mg daily, furosemide 40mg daily, metoprolol XL 25mg daily Assessment & Plan (07/10/2024 10:02 AM CDT): Normotensive. No changes. Assessment & Plan (04/27/2024 10:15 AM CORRECTIONAL CLASSIFICATION COUNSELOR): Chronic problem. Controlled on current amlodipine 10 mg daily, furosemide 40mg daily, metoprolol succinate 25mg daily Assessment & Plan (02/05/2024 7:31 AM CORRECTIONAL CLASSIFICATION COUNSELOR): Stable on fursodmeid en ad metoprolol and amlodipine. WIll montior erpsonse. Assessment & Plan (01/17/2024 8:41 AM CDT): Blood pressure controlled and will continue on Metoprolol and Amlodipine. Follows with Cardiology. Assessment & Plan (03/29/2023 11:35 AM CORRECTIONAL CLASSIFICATION COUNSELOR): Chronic problem. Controlled on current amlodipine 5mg daily. Labs ordered. Verified that she uses mychart. Aware to check results/results letter in [employer]. Will contact by phone if needed. Assessment & Plan (11/23/2022 1:57 PM CDT): Chronic problem. Controlled on currentamlodipine 5mg daily. Rapid heart beat 11/02/2022 Left hand paresthesia 11/02/2022 Lower esophageal ring (Schatzki) 07/15/2022 Assessment & Plan (08/10/2022 10:13 AM CDT): Keep EGD as scheduled with Dr. Ramos. Discussed chewing food 15-30 times prior to swallowing. Avoid exacerbating substances. Assessment & Plan (07/15/2022 2:26 PM CDT): Associated with dysphagia. Treated with balloon dilation (16.5 mm) in 2019 with some improvement. I reviewed the previous endoscopy report. Repeat EGD with dilation is recommended and scheduled. Possible disruption of the ring with forceps. Falls 10/20/2021 Vulvovaginitis 08/06/2021 Assessment & Plan (08/08/2021 5:52 PM CDT): Diflucan today& repeat in 3 days. Reviewed med SE & scheduling. To use warm water & unscented cleanser to was vulva, no scented bath products. Wear cotton underwear. Wear loose pants/underwear. No sprays/powders to vaginal area. No douching. No baby wipes or scented toilet paper Will call if no improvement. Hemorrhoids 08/06/2021 Assessment & Plan (08/08/2021 5:53 PM CDT): Proctofoam sent. Discussed referral to GI if no improvement. Discussed good hydation, not getting constipated--harder stool will worsen the hemorrhoids. BMI 29.0-29.9,adult 08/06/2021 Assessment & Plan (08/08/2021 5:53 PM CDT): Reviewed need to lose weight, reviewed health benefits. Reviewed recommendations for daily intake & activity 20-30 minutes/day. Discussed healthy diet and importance of regular physical activity. Greater trochanteric bursitis of right hip 01/06 Multiple falls 10/09/2020 Balance problem 10/09/2020 Hypokalemia 10/09/2020 Overactive bladder 04/10/2020 Assessment & Plan (04/10/2020 8:58 AM CORRECTIONAL CLASSIFICATION COUNSELOR): Oxybutynin refilled. Reviewed med SE & scheduling. Reports improvement w/medication. Dry eyes 04/10/2020 Assessment & Plan (08/10/2022 10:11 AM CDT): Continue following with Ophthalmology as directed. Assessment & Plan (04/10/2020 8:58 AM CORRECTIONAL CLASSIFICATION COUNSELOR): Xiidra eye gtts refilled. Uses bilaterally bid. Aftercare following right hip joint replacement surgery 12/04/2019 Assessment & Plan (12/04/2019 2:04 PM CDT): 1. Eat a healthy diet: focus on lean meats and proteins, more fruits, vegetables and whole grains and low in sugars and fats. Limit red meat and avoid processed meat. 2. Maintain a healthy weight; avoid being overweight. Aim for a normal body mass index (BMI) of 18.5-24.9. Help learning to eat healthier, we can set up appointment with project administrative assistant/senior account clerk. 3. Have an active lifestyle, strive for 30 minutes of moderate exercise 5 times a week and strength or resistance training at least twice a week. 4. Use broad-spectrum (UVA+UVB) sunscreen with SPF 30 or greater, is water resistant, limit time spent in the sun (10 am-4pm), wear hat, wear UV protective clothing, wear sunglasses. Never use a tanning bed. Skin that was irradiated may be more sensitive over your lifetime. 5. Does not smoke or chew tobacco. 6. Limit alcohol intake, 1 drink per day for a woman Osteopenia of multiple sites 12/04/2019 Assessment & Plan (08/10/2022 10:12 AM CDT): Compliant with the [place] [facility]. Due for follow-up DEXA. Ordered. Will plan accordingly once results are received. Continue calcium, vitamin-D, weight-bearing exercise. Assessment & Plan (04/10/2020 8:55 AM CORRECTIONAL CLASSIFICATION COUNSELOR): Follow a Bone Healthy Diet and lifestyle: -Consume Calcium and vit D rich foods -Calcium and vitamin D3 supplementation daily -Fall precautions. -Perform weight bearing exercises at least 3 days a week for bone strengthening. Assessment & Plan (12/08/2019 10:53 PM CDT): evista refilled. Reviewed med SE & scheduling. Vitamin D ordered; will contact w/results once rec'd. Other chest pain 08/27/2019 Gastroesophageal reflux disease 05/18/2019 Assessment & Plan (02/29/2024 8:17 AM CORRECTIONAL CLASSIFICATION COUNSELOR): Stable on PPI and will monitor rsepone. Continue to follow response. No dysphagia. Assessment & Plan (04/10/2020 8:59 AM CORRECTIONAL CLASSIFICATION COUNSELOR): Omeprazole refilled. Has lost 6# since 01/2020 appt. Reviewed provocative foods to avoid: caffeine, citrus, ETOH, carbonated drinks, fried/fatty/fast foods & rich/creamy sauces. Reviewed diet/exercise recommendations: 20-30min physicaly activity daily at minimum. Reviewed med Ses & scheduling. Weight loss will help improve GERD sxs. Keep HOB elevated 30 degrees & not eat 2-3 hrs before bedtime. Assessment & Plan (09/07/2019 12:21 PM CDT): Intermittently symptomatic. Patient was advised to continue omeprazole p.r.n. Assessment & Plan (05/18/2019 1:16 PM CORRECTIONAL CLASSIFICATION COUNSELOR): Intermittently symptomatic. Patient was counseled as regards her diet and lifestyle. Continue omeprazole. Prescription refilled and sent to [facility]. High risk human papilloma virus infection 2018 Atypical squamous cells of u ndetermined significance (ASCUS) on Papanicolaou smear of cervix 02/21/2019 Moderate episode of recurrent major depressive d isorder 02/21/2019 Assessment & Plan (02/29/2024 8:17 AM CORRECTIONAL CLASSIFICATION COUNSELOR): Mood is stable on duloxetine. WIll follow response. Assessment & Plan (12/08/2019 10:51 PM CDT): Again spoke at length re: [place], family farm & children. Doing well. Reports good control of depression w/current regimen. No changes to be made at this time. Reviewed med Ses & scheduling. Reviewed red flags. Assessment & Plan (02/21/2019 5:34 PM CORRECTIONAL CLASSIFICATION COUNSELOR): Spoke at length re: husbands , 1st thanksgiving/Mcintyre since his , living alone. Tearful during discussion. Taking cymbalta sporadically. Discussed assuring daily use to maximize effectiveness. Discussed possible increase in dose if needed once taking regularly. Denies thoughts of SI/HI on direct questioning. Good/strong family support. F/u in 5-7 weeks. Odynophagia 12/08/2018 Assessment & Plan (07/15/2022 2:22 PM CDT): Recurrent painful swallowing especially in the upper esophagus area. May be due to Alissa, yeast or drug-induced ulcer. EGD is recommended and scheduled. Assessment & Plan (12/08/2018 6:58 PM CDT): Worsening. Most likely due to pill induced esophageal ulcer since patient is taking aspirin, Celebrex and potassium. There is also a pre-existing narrowing around the cervical esophagus related to previous C-spine surgery. Other possibilities includes fungal or viral esophagitis. Plan The patient was advised to only take the above-mentioned medications in the morning and to son it down with a lot of fluids. Esophagogastroduodenoscopy is recommended for direct visualization to determine the cause. Advised to continue H2 receptor antagonist. Personal history of colonic polyps 12/08/2018 Assessment & Plan (12/08/2018 7:01 PM CDT): Most recent colonoscopy was in 2013 and a tubular adenoma was removed from the cecum. The patient now requests surveillance colonoscopy. Colonoscopy scheduled. The patient was informed about the risks, benefits and alternatives to colonoscopy. The risks including but not limited to perforation, bleeding, infection and anesthetic complications with discussed with the patient and the patient verbalized full understanding. Grade I hemorrhoids 11/13/2018 Assessment & Plan (11/13/2018 1:43 PM CDT): Hemorrhoids on exam. Discussed otc: tucks, prep H to help w/swelling pain. Aware to clean well after BM. Discussed softer stool to prevent further pain. Breast cancer screening 09/08/2018 Assessment & Plan (09/08/2018 9:30 AM CDT): Mammogram order given; will call with results when received. Encouraged to perform monthly SBE. Encounter for well woman marc bennett with routine gynecological exam 09/08/2018 Assessment & Plan (09/08/2018 9:31 AM CDT): WWE: pap & breast exam completed today. Will call w/pap results when received. Instructed in SBE. to perform monthly in shower; preferably after menses. Aware that she may have some blood tinged discharge with wiping today after pap. Encounter for Hemoccult screening 09/08/2018 Assessment & Plan (09/08/2018 9:31 AM CDT): NEGATIVE hemoccult. Primary osteoarthritis of both hands 06/13/2018 Assessment & Plan (02/29/2024 8:16 AM CORRECTIONAL CLASSIFICATION COUNSELOR): Reivewed tylenol dosing and reviewed topical agents. Cervical high risk human pap illomavirus (HPV) DNA test positive 06/13/2018 Esophageal dysphagia 09/07/2017 Assessment & Plan (01/19/2023 8:43 PM CDT): Recurrent dysphagia. Due to Schatzki's ring. Had some relief following EGD with dilation in August 2022. Treated for esophageal candidiasis with nystatin suspension. She was offered repeat endoscopy with dilation. She however states she is not ready because she has some obligations in the next few months. Advised to call me if dysphagia is worse whenever she is ready to have repeat dilation. Assessment & Plan (07/15/2022 2:25 PM CDT): Recurrent dysphagia. Likely due to Schatzki's ring. EGD with disruption of the ring and dilation is recommended and scheduled. Assessment & Plan (09/07/2019 12:20 PM CDT): Symptoms persist but patient is able to manage by eating slowly and taking small bites with proper chewing of bolus. Assessment & Plan (05/18/2019 1:17 PM CORRECTIONAL CLASSIFICATION COUNSELOR): Chronic. 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 She was encouraged to continue GI soft diet. Assessment & Plan (12/08/2018 7:00 PM CDT): Chronic. She did have Esophagogastroduodenoscopy with Endoflip as well as disruption of esophageal stricture in February 2018. She did have relief with the dysphagia following the endoscopy with dilation. Plan Esophagogastroduodenoscopy with possible dilation is recommended and scheduled. The risks, benefits and alternative to an esophagogastroduodenoscopy were discussed with the patient and the patient verbalized understanding. The risks included perforation, bleeding, infection and anesthetic complications. Assessment & Plan (01/05/2018 4:48 PM CDT): Symptoms persistent. Recent Esophagogastroduodenoscopy revealed medium size hiatal hernia. Esophageal manometry revealed gastroesophageal junction abnormality. Repeat endoscopy with endo flip was recommended. I discussed the findings with the patient and her daughter. She was advised to follow up for the endoscopy to with endoFLIP at [facility] as recommended. Assessment & Plan (09/07/2017 4:35 PM CDT): Symptomatic. Has lost over 30 lbs. The symptoms started after she had cervical spine surgery with an anterior neck approach. The symptom is also associated with hoarseness. Plan I will request for esophagram. Esophagogastroduodenoscopy and possible dilation is also recommended and scheduled. The risks, benefits and alternative to an esophagogastroduodenoscopy were discussed with the patient and the patient verbalized understanding. The risks included perforation, bleeding, infection and anesthetic complications. Hyperlipidemia associated with type 2 diabetes sabrina corona 06/28/2017 Assessment & Plan (09/25/2024 11:42 AM CDT): Chronic problem. Controlled on current Rosuvastatin 20mg. Last lipid panel: 01/17/24 LDL=82, QF=979. Will update labs. Verified that she uses mychart. Aware to check results/results letter in mychart. Will contact by phone if needed. Assessment & Plan (04/27/2024 9:54 AM CORRECTIONAL CLASSIFICATION COUNSELOR): Chronic problem. Controlled on current Rosuvastatin 20mg. Last lipid panel: 01/17/24 LDL=82, XS=697. Assessment & Plan (02/29/2024 8:17 AM CORRECTIONAL CLASSIFICATION COUNSELOR): Stable on rosuvastatin and will cotinue to follow response. NO new arthralgias/myalgias. Assessment & Plan (02/05/2024 7:30 AM CORRECTIONAL CLASSIFICATION COUNSELOR): Stable on rosuvastatin and will continue to follow with mylagias. Assessment & Plan (01/17/2024 8:41 AM CDT): Lipid panel ordered. Will continue to take Rosuvastatin. Assessment & Plan (11/24/2023 3:19 PM CDT): Chronic, stable. Continue rosuvastatin Assessment & Plan (03/29/2023 10:53 AM CORRECTIONAL CLASSIFICATION COUNSELOR): Chronic problem. Controlled on current Rosuvastatin 20mg. Last lipid panel: 02/10/22 LDL=19, VN=744 Labs ordered. Verified that she uses mychart. Aware to check results/results letter in [employer]. Will contact by phone if needed. Assessment & Plan (11/23/2022 1:57 PM CDT): Chronic problem. Controlled on current Rosuvastatin 20mg. Last lipid panel: 02/10/22 LDL=19, YZ=852. No changes at this time. Assessment & Plan (08/10/2022 10:11 AM CDT): Secondary prevention. Reviewed medications. Lipid panel ordered; will call w/results when rec'd. Denies any statin Ses. Reviewed diet/exercise recommendations. Reviewed red flags. Assessment & Plan (07/20/2022 11:30 AM CDT): Chronic problem. Controlled on current Rosuvastatin 20mg. Last lipid panel: 02/10/22 LDL=19, JG=349. No changes at this time. Assessment & Plan (07/09/2021 3:45 PM CDT): Chronic problem. On statin therapy, no changes. Assessment & Plan (12/23/2020 3:55 PM CDT): LDL at goal, under 70 On rosuvastatin 40 mg day Low-cholesterol diet and exercise were emphasized Assessment & Plan (06/19/2020 12:30 PM CDT): Goal of treatment , LDL cholesterol less than 100 ( less than 70 in patients with history of heart attacks and / or strokes ) NonHDL cholesterol ( total cholesterol minus HDL cholesterol ) goal less than 130 ( less than 100 in patients with history of heart attacks and / or strokes ) Low cholesterol, low fat diet was discussed and advised. Daily exercise On statin therapy with Crestor Assessment & Plan (04/09/2020 8:36 PM CORRECTIONAL CLASSIFICATION COUNSELOR): Lab Results Component Value Date CHOL 134 12/25/2019 CHOL 144 04/17/2019 CHOL 120 (L) 02/19/2016 HDL 46 12/25/2019 HDL 45 04/17/2019 HDL 38 (L) 02/19/2016 LDL 43 02/19/2016 LDL 61 01/09/2015 LDL 56 02/28/2014 TRIG 130 12/25/2019 TRIG 182 (H) 04/17/2019 TRIG 197 (H) 02/19/2016 Patient should focus on limiting bad fats in the diet and using exercise as a way to improve the lipid status. Secondary prevention. Reviewed medications. Denies any statin Ses. Reviewed diet/exercise recommendations. Reviewed red flags. Assessment & Plan (12/08/2019 10:49 PM CDT): We will check labs and make adjustments to medications as needed. Patient should focus on limiting bad fats in the diet and using exercise as a way to improve the lipid status. Secondary prevention. Reviewed medications. Lipid panel ordered; will call w/results when rec'd. Denies any statin Ses. Reviewed diet/exercise recommendations. Reviewed red flags. Assessment & Plan (05/17/2019 12:21 PM CORRECTIONAL CLASSIFICATION COUNSELOR): Goal of treatment , LDL cholesterol less than 100 ( less than 70 in patients with history of heart attacks and / or strokes ) NonHDL cholesterol ( total cholesterol minus HDL cholesterol ) goal less than 130 ( less than 100 in patients with history of heart attacks and / or strokes ) Low cholesterol, low fat diet was discussed and advised. Daily exercise On statin therapy Assessment & Plan (12/21/2018 1:28 PM CDT): Goal of treatment , LDL cholesterol less than 100 ( less than 70 in patients with history of heart attacks and / or strokes ) NonHDL cholesterol ( total cholesterol minus HDL cholesterol ) goal less than 130 ( less than 100 in patients with history of heart attacks and / or strokes ) Low cholesterol, low fat diet was discussed and advised. Daily exercise On statin therapy Assessment & Plan (08/24/2018 11:28 AM CDT): Goal of treatment , LDL cholesterol less than 100 ( less than 70 in patients with history of heart attacks and / or strokes ) NonHDL cholesterol ( total cholesterol minus HDL cholesterol ) goal less than 130 ( less than 100 in patients with history of heart attacks and / or strokes ) Low cholesterol, low fat diet was discussed and advised. Daily exercise On statin therapy Assessment & Plan (02/21/2018 11:05 AM CORRECTIONAL CLASSIFICATION COUNSELOR): Goal of treatment , LDL cholesterol less than 100 ( less than 70 in patients with history of heart attacks and / or strokes ) NonHDL cholesterol ( total cholesterol minus HDL cholesterol ) goal less than 130 ( less than 100 in patients with history of heart attacks and / or strokes ) Low cholesterol, low fat diet was discussed and advised. Daily exercise On statin therapy with Crestor Assessment & Plan (06/28/2017 4:03 PM CDT): Goal of treatment , LDL cholesterol less than 100 ( less than 70 in patients with history of heart attacks and / or strokes ) NonHDL cholesterol ( total cholesterol minus HDL cholesterol ) goal less than 130 ( less than 100 in patients with history of heart attacks and / or strokes ) Low cholesterol, low fat diet was discussed and advised. Daily exercise On statin therapy Coronary artery calcification 02/22/2017 Assessment & Plan (02/22/2017 6:38 PM CORRECTIONAL CLASSIFICATION COUNSELOR): Patient has coronary artery calcification, presumably early CAD. Activity level is quite limited because of back neck any problems but does have some GREER walking across the parking lot. Needs preoperative evaluation. EKG today shows NSR with poor R-wave progression. Recommend further evaluation of cardiac function with a Lexiscan stress test. Exomphalos 02/02/2016 Overview (06/24/2016): Umbilical hernia Pure hypercholesterolemia 01/20/2016 Overview (07/10/2024): Pure hypercholesterolemia Pure hypercholesterolemia Last Assessment & Plan: Goal of treatment , LDL cholesterol less than 100 ( less than 70 in patients with history of heart attacks and / or strokes ) NonHDL cholesterol goal less than 130 ( less than 100 in patients with history of heart attacks and / or strokes ) Continue statin therapy Assessment & Plan (02/08/2017 4:06 PM CORRECTIONAL CLASSIFICATION COUNSELOR): Goal of treatment , LDL cholesterol less than 100 ( less than 70 in patients with history of heart attacks and / or strokes ) NonHDL cholesterol goal less than 130 ( less than 100 in patients with history of heart attacks and / or strokes ) Continue statin therapy Type 2 diabetes mellitus 01/20/2016 Overview (06/24/2016): Type 2 diabetes mellitus with unspecified complications Assessment & Plan (09/25/2024 12:21 PM CDT): Chronic problem. A1c not at goal but worsened from 8.4% 04/27/24 to now 8.7%. discussed diet & need to watch intake. Will start jardiance 10mg daily. Current medications: Januvia 100 mg daily Jardiance 10 mg daily Will update labs. Verified that she uses mychart. Aware to check results/results letter in [employer]. Will contact by phone if needed. Due for DM eye exam( 02/2022 Dr Ness). Saw them 2023. Letter sent to get copy of report. Fairly sedentary. Strive for regular exercise (30min most days) and diet (get at least 4-5 servings of fruit and veggies daily, avoid processed foods, increase lean protein intake and decrease carb portions as well as fruit juices, regular soda & desserts). Watch carbs and simple sugars. Check the feet daily for skin breakdown and infection. Assessment & Plan (04/27/2024 10:19 AM CORRECTIONAL CLASSIFICATION COUNSELOR): Chronic problem. A1c not at goal but improved from 8.8% 11/24/23 to now 8.4%. no hypoglycemia. Current medications: Januvia 100mg daily Will update MA/Cr. Verified that she uses mychart. Aware to check results/results letter in [employer]. Will contact by phone if needed. Due for DM eye exam( 02/2022 Dr Ness). Saw them 2023. Letter sent to get copy of report. Fairly sedentary. Strive for regular exercise (30min most days) and diet (get at least 4-5 servings of fruit and veggies daily, avoid processed foods, increase lean protein intake and decrease carb portions as well as fruit juices, regular soda & desserts). Watch carbs and simple sugars. Check the feet daily for skin breakdown and infection. Assessment & Plan (02/29/2024 8:16 AM CORRECTIONAL CLASSIFICATION COUNSELOR): [place]iweed glycemic control and will montior response. Continue to follow home BP. No side effects to medication, no sypmtomatic hypoglycemia. Assessment & Plan (02/05/2024 7:30 AM CORRECTIONAL CLASSIFICATION COUNSELOR): Reivewed secondary prevneiton. Continue son Chuck and will follow response. Assessment & Plan (01/17/2024 8:41 AM CDT): Blood sugars are elevated. Continue to follow with Endocrinology. Assessment & Plan (11/24/2023 3:19 PM CDT): Chronic, uncontrolled I have recommended to stay on Januvia 100 mg daily Low carb diet was also discussed ARTHUR would be possibility however risk of hypoglycemia would be a major issue in a patient living alone Assessment & Plan (03/29/2023 11:35 AM CORRECTIONAL CLASSIFICATION COUNSELOR): Chronic problem. A1c worsened from 7.1% 11/23/22 to now 7.9%. no hypoglycemia. Has been missing medications. Farxiga will be stopped d/t incontinence issues. Will continue Januvia (has been missing most of her doses). Current medications: Januvia 100mg daily Will update labs today. Verified that she uses [employer]. Aware to check results/results letter in [employer]. Will contact by phone if needed. Due for DM eye exam( 02/2022 Dr Ness) Fairly sedentary. Strive for regular exercise (30min most days) and diet (get at least 4-5 servings of fruit and veggies daily, avoid processed foods, increase lean protein intake and decrease carb portions as well as fruit juices, regular soda & desserts). Watch carbs and simple sugars. Check the feet daily for skin breakdown and infection. Assessment & Plan (11/23/2022 1:58 PM CDT): Chronic problem. A1c improved from 7.7% 07/2022 to now 7.1%. no hypoglycemia. Current medications: Farxiga 5mg daily Januvia 100mg daily UTD on labs. UTD on DM eye exam; last DM eye exam fall 2021 (Dr Ness) Strive for regular exercise (30min most days) and diet (get at least 4-5 servings of fruit and veggies daily, avoid processed foods, increase lean protein intake and decrease carb portions as well as fruit juices, regular soda & desserts). Watch carbs and simple sugars. Check the feet daily for skin breakdown and infection. Assessment & Plan (08/10/2022 10:12 AM CDT): A1c 7.7%. Continue following with Endocrinology as directed. Red flags reviewed. Assessment & Plan (07/20/2022 11:56 AM CDT): Chronic problem. Stable. Farxiga causing incontinence. Will cut back to 5mg daily & add Januvia. Current medications: Farxiga 5mg daily Januvia 100mg daily Will update MA/Cr. Verified that she uses mychart. Aware to check results/results letter in [employer]. Will contact by phone if needed. Last DM eye exam fall 2021 (Dr Ness) Strive for regular exercise (30min most days) and diet (get at least 4-5 servings of fruit and veggies daily, avoid processed foods, increase lean protein intake and decrease carb portions as well as fruit juices, regular soda & desserts). Watch carbs and simple sugars. Check the feet daily for skin breakdown and infection. Assessment & Plan (12/29/2021 2:41 PM CDT): Hba1c was Lab Results Component Value Date HGBA1C 7.7 12/29/2021 today, indicating suboptimal DM control Goal Hba1c and blood glucose explained Diet and exercise were advised Blood glucose monitoring : 1 x day Adjustment to medications: Continue Farxiga. Assessment & Plan (08/08/2021 5:52 PM CDT): Microalbumin/creatinine urine completed. Assessment & Plan (07/09/2021 3:54 PM CDT): Chronic problem, overall stable. Cost of medications is an issue. Given her CAD, ideally would continue on SGLT2i. Will stop Januvia and increase Farxiga to 10 mg daily. Rx sent and she will see if cost is going to be reasonable going forward since it's only one branded medication. Samples given today. Discussed that other option is SFU but ideally would avoid these given hypoglycemia risk. She is intolerant of metformin though so this is the only option if she can not continue with Farxiga. She has order in place for MA/Cr so will complete this. Assessment & Plan (12/23/2020 3:54 PM CDT): Hba1c was Lab Results Component Value Date HGBA1C 6.6 12/23/2020 today, indicating adequate DM control Goal Hba1c and blood glucose explained Diet and exercise , discussed Prevention and treatment of hyypoglcyemia discussed. Blood glucose monitoring : 1 or twice a week Adjustment to oral medications: Continue with Jardiance and Farxiga Assessment & Plan (04/10/2020 8:56 AM CORRECTIONAL CLASSIFICATION COUNSELOR): Managed by Dr Peralta. Next appt 06/19/20 Lab Results Component Value Date HGBA1C 7.4 02/07/2020 HGBA1C 7.5 10/02/2019 HGBA1C 7.1 08/08/2019 Reviewed dietary/exercise recommendations. Instructed to perform daily foot check. Reviewed medication side effects & scheduling. Labs ordered; will call with results when received. To make follow up appointment in 6 months. Reviewed red flags; what would warrant further evaluation. Assessment & Plan (02/07/2020 4:43 PM CORRECTIONAL CLASSIFICATION COUNSELOR): Hba1c was Lab Results Component Value Date HGBA1C 7.4 02/07/2020 today, indicating adequate DM control Goals blood sugars of 120-160 and Hba1c under 7 % was explained. 1800 calorie, consistent carb diet recommended, no more than 3-45 grams of carbs per meal, avoiding concentrated sweet drinks and rapid absorption carbs. 25-45 min daily aerobic and resistance exercise recommended Stop Farxiga and Januvia ( due to cost ) Start Glixamby Assessment & Plan (12/08/2019 10:53 PM CDT): Reviewed dietary/exercise recommendations. Instructed to perform daily foot check. Reviewed medication side effects & scheduling. To check/record FSBS & bring to appointments. Labs ordered; will call with results when received. To make follow up appointment in 3 months. Reviewed red flags; what would warrant further evaluation. Lab Results Component Value Date HGBA1C 7.5 10/02/2019 HGBA1C 7.1 08/08/2019 HGBA1C 7.9 (H) 04/17/2019 Assessment & Plan (10/02/2019 1:01 PM CDT): Hba1c was Lab Results Component Value Date HGBA1C 7.5 10/02/2019 today, indicating adequate DM control 1800 calorie, consistent carb diet recommended, no more than 3-45 grams of carbs per meal, avoiding concentrated sweet drinks and rapid absorption carbs. 25-45 min daily aerobic and resistance exercise recommended Prevention and treatment of hyypoglcyemia discussed. Blood glucose monitoring with fingers sticks Medications: Continue Far[place]ga, Januvia Assessment & Plan (05/17/2019 12:20 PM CORRECTIONAL CLASSIFICATION COUNSELOR): Hba1c was Lab Results Component Value Date HGBA1C 7.9 (H) 04/17/2019 today, indicating sub-optima DM control 1800 calorie, consistent carb diet recommended, no more than 3-45 grams of carbs per meal, avoiding concentrated sweet drinks and rapid absorption carbs. 25-45 min daily aerobic and resistance exercise recommended Prevention and treatment of hyypoglcyemia discussed. Blood glucose monitoring with fingers sticks 1 x week Medications: Continue current Assessment & Plan (12/21/2018 1:27 PM CDT): Hba1c was Lab Results Component Value Date HGBA1C 7.6 08/24/2018 today, indicating DM control 1800 calorie, consistent carb diet recommended, no more than 3-45 grams of carbs per meal, avoiding concentrated sweet drinks and rapid absorption carbs. 25-45 min daily aerobic and resistance exercise recommended Prevention and treatment of hyypoglcyemia discussed. Blood glucose monitoring with fingers sticks.... Medications: ...... Assessment & Plan (08/24/2018 11:28 AM CDT): Hba1c was Lab Results Component Value Date HGBA1C 7.6 08/24/2018 today, indicating asub-opitmal, worsening DM control 1800 calorie, consistent carb diet recommended 25-45 min daily aerobic and resistance exercise recommended Prevention and treatment of hyypoglcyemia discussed. Blood glucose monitoring with fingers sticks 1-2 x day . Oral medications: stay on Farxiga, Metformin Assessment & Plan (02/21/2018 11:05 AM CORRECTIONAL CLASSIFICATION COUNSELOR): Hba1c was Lab Results Component Value Date HGBA1C 6.7 02/21/2018 today, indicating adequate DM control 1800 calorie, consistent carb diet recommended 25-45 min daily aerobic and resistance exercise recommended Prevention and treatment of hyypoglcyemia discussed. Blood glucose monitoring with fingers sticks 1-2 x day . Oral medications: Januvia, Metformin Assessment & Plan (10/11/2017 9:55 AM CDT): Hba1c was Lab Results Component Value Date HGBA1C 6.6 06/28/2017 today, indicating adequate DM control 1800 calorie, consistent carb diet recommended 30 min daily aerobic and resistance exercise recommended Blood glucose monitoring with fingers sticks 1-2 x week. . Assessment & Plan (06/28/2017 12:13 PM CDT): Your Hba1c today was: Lab Results Component Value Date HGBA1C 6.6 06/28/2017 meaning a 3 month average sugar of : 134 Your goal hba1c is under 7.0 to prevent narcotics detective diabetes complications ( eye , kidney and nerve damage ) . Your goal sugars are in the 90-130 range Daily aerobic ( walking, riding a bike, swimming ) and resistance exercises ( light weight lifting, resistance band stretching ) for at least 30 minutes is recommended If you can not walk, chair exercises is very acceptable. As little as 15-20 minutes exercise , in one or two sessions a day, is still very helpful and will help to improve your diabetes control . Eat small portion meals, no more than 1800 calories Diet Try to eat not more than than 2-3 servings of carbs ( starches ) wiith your meals. Avoid soft drinks, including regular sodas , fruit juices and sweetened tea. Drink water instead. Eat plenty of green and leafy vegetables, including salads. Take your medications regularly. Monitor your sugar levels with finger sticks regularly and keep a log sheet or book. Bring your sugar meter and /or a log book or log sheet to every office visit. Assessment & Plan (02/08/2017 4:05 PM CORRECTIONAL CLASSIFICATION COUNSELOR): Hba1c was 7.1 today, indicating adequate DM control 1800 calorie, consistent carb diet recommended 30 min daily aerobic and resistance exercise recommended Prevention and treatment of hyypoglcyemia discussed. Blood glucose monitoring with fingers sticks 1-2 x day . Foot care was discussed. Assessment & Plan (11/09/2016 10:27 AM CDT): Hba1c was 7.7 today, indicating inadequate DM control 1800 calorie, consistent carb diet recommended 30 min daily aerobic and resistance exercise recommended Prevention and treatment of hyypoglcyemia discussed. Blood glucose monitoring with fingers sticks 1-2 x day . Foot care was discussed. Add Farxiga, 5 mg once a day Coronary artery disease of n ative heart with stable angina pectoris ([facility]) 01/20/2016 Overview (06/24/2016): CAD in [place] artery Assessment & Plan (02/29/2024 8:15 AM CORRECTIONAL CLASSIFICATION COUNSELOR): Continues on secondary prevention including antiplatelet and statin therapy. No active anginal s/s. Assessment & Plan (02/05/2024 7:30 AM CORRECTIONAL CLASSIFICATION COUNSELOR): Secondary prevnetion. Continues on rosuvastatin and will continue on antiplatelet agent. Continues on metoprolol XL. Essential hypertension 01/20/2016 Overview (06/24/2016): Essential hypertension Assessment & Plan (07/09/2021 3:23 PM CDT): Controlled on current medications, no changes. Assessment & Plan (12/23/2020 3:54 PM CDT): Adequately control Low-salt diet Assessment & Plan (06/19/2020 12:30 PM CDT): Goal blood pressure is less than 140/85 Low salt diet was discussed andd recommended The importance of daily aerobic exercise was also emphasized. Continue current meds, including RAFAEL-I or ARB, e.g. Micardis Assessment & Plan (04/09/2020 8:37 PM CORRECTIONAL CLASSIFICATION COUNSELOR): The blood pressure is under good control. Ideally it should be under 130/80. Continue medications without adjustment. Continue efforts to eat well (4-5 fruits and veggies) daily and exercise for about 30 min nearly every day. Watch salt intake, keeping to less than 2000mg per day. Limit alcohol. Include strategies to cope with stress. Assessment & Plan (12/08/2019 10:49 PM CDT): The blood pressure is under good control. Ideally it should be under 130/80. Continue medications without adjustment. Continue efforts to eat well (4-5 fruits and veggies) daily and exercise for about 30 min nearly every day. Watch salt intake, keeping to less than 2000mg per day. Limit alcohol. Include strategies to cope with stress. Labs ordered today; will contact w/results once received. Assessment & Plan (10/02/2019 1:02 PM CDT): Goal blood pressure is less than 140/85 Low salt diet recommended Daily aerobic exercise Continue current meds, Assessment & Plan (05/17/2019 12:20 PM CORRECTIONAL CLASSIFICATION COUNSELOR): Goal blood pressure is less than 140/85 Low salt diet recommended Daily aerobic exercise Continue current meds, including RAFAEL-I or ARB Assessment & Plan (12/21/2018 1:28 PM CDT): Goal blood pressure is less than 140/85 Low salt diet recommended Daily aerobic exercise Continue current meds, including RAFAEL-I or ARB Assessment & Plan (08/24/2018 11:27 AM CDT): Goal blood pressure is less than 140/85 Low salt diet recommended Daily aerobic exercise Continue current meds, including RAFAEL-I or ARB Assessment & Plan (02/21/2018 11:06 AM CORRECTIONAL CLASSIFICATION COUNSELOR): Goal blood pressure is less than 140/85 Low salt diet recommended Daily aerobic exercise Continue current meds, including RAFAEL-I or ARB Assessment & Plan (02/22/2017 6:43 PM CORRECTIONAL CLASSIFICATION COUNSELOR): Hypertension is not at goal today, but blood pressure has been well in the last few visits. Assessment & Plan (02/08/2017 4:04 PM CORRECTIONAL CLASSIFICATION COUNSELOR): Goal blood pressure is less than 140/85 Low salt diet recommended Daily aerobic exercise Continue current meds, including RAFAEL-I or ARB Check BMP, microalbumin Assessment & Plan (11/09/2016 10:09 AM CDT): Goal blood pressure is less than 140/85 Low salt diet recommended Daily aerobic exercise Continue current meds, including RAFAEL-I or ARB Osteoarthritis 02/06/2014 Overview (06/24/2016): Osteoarthritis Spinal stenosis of lumbar region 02/06/2014 Overview (06/24/2016): Lumbar spinal stenosis Assessment & Plan (02/21/2019 4:55 PM CORRECTIONAL CLASSIFICATION COUNSELOR): Sees Dr Ward for pain mgmt. Has f/u appt 02/27/19 after MRI. Denies b/b dysfunction. Seborrheic eczema 10/31/2013 Assessment & Plan (04/10/2020 8:56 AM CORRECTIONAL CLASSIFICATION COUNSELOR): Ovace cream refilled. Rosacea 10/31/2013 Allergic rhinitis 02/05/2013 Overview (08/29/2017): Allergic rhinitis Assessment & Plan (04/10/2020 8:56 AM CORRECTIONAL CLASSIFICATION COUNSELOR): singulair refilled. Reviewed med SE & scheduling. Hypothyroidism 02/05/2013 Overview (06/25/2016): HYPOTHYROIDISM NOS Assessment & Plan (09/25/2024 11:43 AM CDT): Chronic problem. Managed by PCP. Currently on Levothyroxine 50mcg daily. Assessment & Plan (04/27/2024 9:54 AM CORRECTIONAL CLASSIFICATION COUNSELOR): Chronic problem. Managed by PCP. Currently on Levothyroxine 50mcg daily. Assessment & Plan (02/29/2024 8:17 AM CORRECTIONAL CLASSIFICATION COUNSELOR): Continue to follow TFTs. Clinically euthyroid. Assessment & Plan (02/05/2024 7:31 AM CORRECTIONAL CLASSIFICATION COUNSELOR): Clnically euthryoid> C [id number] o follow TFts. Assessment & Plan (01/17/2024 8:21 AM CDT): TSH and T4 ordered will continue to monitor. Euthyroid. Assessment & Plan (12/23/2020 3:53 PM CDT): Check TFTs Adjust dose of levothyroxine if indicated Assessment & Plan (06/19/2020 12:31 PM CDT): Thyroid function tests, including TSH and free T4 were requested Will adjust dose of Levothyroxine accordingly . If there is a need to make changes, will recheck levels in 2-3 months. Instructions to patient on taking medication properly : in the morning, on an empty stomach , 1 h part from food and/or other meds. Assessment & Plan (04/09/2020 8:37 PM CORRECTIONAL CLASSIFICATION COUNSELOR): TSH/T4 ordered; will contact with results when received. Reviewed med SE & scheduling. Reviewed sxs hypo/hyperthyroidism. No changes at this time. Assessment & Plan (12/08/2019 10:50 PM CDT): TSH/T4 ordered; will contact with results when received. Reviewed med SE & scheduling. Reviewed sxs hypo/hyperthyroidism. No changes at this time. Assessment & Plan (10/11/2017 9:55 AM CDT): Will check TSH and free T4 Will adjust dose of Levothyroxine accordingly . If there is a need to make changes, will recheck levels in 2-3 months. Instructions to patient on taking medication properly : in the morning, on an empty stomach , 1 h part from food and/or other meds. If any doses are missed, can take 2-3 tab together ,to make up for the missed dose; make sure at the end to the week, 7 tabs have been taken. Low back pain 02/05/2013 Overview (06/25/2016): LUMBAGO Asthma 02/05/2013 Overview (06/25/2016): Asthma Vitamin D deficiency 10/25/2012 Overview (06/23/2016): Vitamin D deficiency Assessment & Plan (04/09/2020 8:39 PM CORRECTIONAL CLASSIFICATION COUNSELOR): Last D levels 39. No changes. Assessment & Plan (10/11/2017 9:54 AM CDT): Check vit D levels Adjust if indicated Knee joint replacement by other means 04/26/2012 SUNIL (obstructive sleep apnea) 03/30/2012 Assessment & Plan (02/29/2024 8:16 AM CORRECTIONAL CLASSIFICATION COUNSELOR): Reivewed nightly postivie pressure and will monitor response. Assessment & Plan (08/10/2022 10:12 AM CDT): Reports 100 % compliant with CPAP and will continue. 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 Margaux follow response. Primary osteoarthritis of right hip 01/06/2021 09/08/2023 Need for influenza vaccination 12/04/2019 04/09/2020 Assessment & Plan (12/08/2019 10:52 PM CDT): Flu vaccine given today. Discussed possible tenderness/redness at injection site. BMI 31.0-31.9,adult 12/04/2019 04/10/19 21 Assessment & Plan (12/04/2019 3:28 PM CDT): Reviewed need to lose weight, reviewed health benefits. Reviewed recommendations for daily intake & activity 20-30 minutes/day. Discussed healthy diet and importance of regular physical activity. Joining swim classes at [facility]. Fracture of distal phalanx o f left ring finger 09/13/2019 04/09/2020 Finger pain, left 08/27/2019 04/09/2020 Fecal smearing 05/18/2019 04/09/2020 Assessment & Plan (09/07/2019 12:18 PM CDT): Symptoms are better. Anorectal manometry was normal. I reviewed the report with the patient. She was advised to continue fiber supplement. Assessment & Plan (05/18/2019 1:17 PM CORRECTIONAL CLASSIFICATION COUNSELOR): New onset. Rectal exam revealed no palpable lesion. She was counseled to start on Benefiber once a day. She is referred for anorectal manometry. Viral URI with cough 03/22/2019 021 Assessment & Plan (03/22/2019 10:16 PM CORRECTIONAL CLASSIFICATION COUNSELOR): This looks viral in nature and should run its course without antibiotics in 7-10 days. You will need to take over the counter medications: Advise to use Mucinex and nasal saline to help with congestions and mucus. Add flonase 1 spray per nostril daily for the next 2 weeks. Add Claritin, Violeta or Zyrtec daily for nasal drip Coricidin HBP for head/nasal congestion, Dayquil/delsym for cough Drink plenty of fluids. May take Tylenol for pain. Contact the office if not better in a few days or if getting worse. If symptoms worsen or you experience shortness of breath, return to clinic or go to ER. BMI 30.0-30.9,adult 03/22/2019 08/07/19 22 Assessment & Plan (04/10/2020 8:59 AM CORRECTIONAL CLASSIFICATION COUNSELOR): Reviewed need to lose weight, reviewed health benefits. Reviewed recommendations for daily intake & activity 20-30 minutes/day. Discussed healthy diet and importance of regular physical activity. Has lost 6# since 01/2020 appt. Assessment & Plan (03/22/2019 10:16 PM CORRECTIONAL CLASSIFICATION COUNSELOR): Reviewed need to lose weight, reviewed health benefits. Reviewed recommendations for daily intake & activity 20-30 minutes/day. Discussed healthy diet and importance of regular physical activity. Right hip pain 02/21/2019 04/09/2020 Assessment & Plan (02/21/2019 4:59 PM CORRECTIONAL CLASSIFICATION COUNSELOR): R hip xr ordered. Will contact w/results once rec'd. Discussed possible pain radiation from lumbar stenosis. Discussed possible OA as cause of pain. Nasal sore 11/13/2018 03/22/2019 Assessment & Plan (02/21/2019 4:56 PM CORRECTIONAL CLASSIFICATION COUNSELOR): bactroban ointment for nasal ulcerations. Aware to not pick. Discussed saline nasal spray & bactroban ointment. Assessment & Plan (11/13/2018 1:42 PM CDT): No wounds at this time. Sounds similar to herpetic sore. Valtrex sent. Reviewed 2 tabs at onset & 2 tabs 12hr later. Reviewed med SE & scheduling. Urinary frequency 11/13/2018 04/09/2020 Assessment & Plan (11/13/2018 1:44 PM CDT): Has taken oxybutynin in past. Would like to try again. Discussed bid. Reviewed oxybutynin SE & scheduling. Drinks fluid up to bedtime. Discussed stopping 2-3 hours prior to bed to see if that is helpful also. Candidiasis of vulva and vagina 09/08/2018 02/21/2019 Assessment & Plan (09/08/2018 9:30 AM CDT): Diflucan today. Reviewed med SE & scheduling. To use warm water & unscented cleanser to was vulva, no scented bath products. Wear cotton underwear. Wear loose pants/underwear. No sprays/powders to vaginal area. No douching. No baby wipes or scented toilet paper Osteopenia determined by x-ray 06/13/2018 04/10/2020 Assessment & Plan (04/09/2020 8:38 PM CORRECTIONAL CLASSIFICATION COUNSELOR): Follow a Bone Healthy Diet and lifestyle: -Consume Calcium and vit D rich foods -Calcium and vitamin D3 supplementation daily -Fall precautions. -Perform weight bearing exercises at least 3 days a week for bone strengthening. Pain of foot 01/28/2016 04/09/2020 Atrophic vaginitis 09/26/2014 Arthralgia of shoulder 12/14/201304/09 Hyperlipidemia 08/04/2013 04/09/2020 Overview (06/25/2016): HYPERLIPIDEMIA NEC/NOS Assessment & Plan (11/09/2016 10:13 AM CDT): Goal of treatment , LDL cholesterol less than 100 ( less than 70 in patients with history of heart attacks and / or strokes ) NonHDL cholesterol goal less than 130 / 100 Lipids at goal. Continue statin therapy Low cholesterol diet, exercise advised. Hypertension 02/05/2013 02/22/2017 Overview (06/25/2016): HYPERTENSION NOS Benign essential hypertension 09/10/2011 12/04/2019 Acquired deformity of ankle and foot 09/02/2010 04/09/2020 Arthralgia of ankle 01/30/2009 04/09/19 21 Encounters Date Type Department Care Team Description 10/04/2024 Telephone [facility] [place] [id number] [facility] 6th [place] [address] [place] [address] Elvira Coles 10/03/2024 Telephone [facility] [address] [facility] [address] Floor [address] [place] [address] Virginie Freed, [place] Med Management 10/02/2024 4:00 PM CDT Office Visit [place] [address] [facility] 6th [place] [address] [place] [address] Smitha Acuna MD Mild cognitive impairment (Primary Dx); Abnormal brain scan 10/02/2024 Telephone [facility] [address] 6th [place] [address] [place] [address] Elvira Coles 09/26/2024 Results Follow-Up [facility] Diabetes and Endocrinology [address] [place] [phone] Ramya Dao NP Lipid panel, Comprehensive metabolic panel, eGFR 09/25/2024 12:33 PM CDT - 09/25/2024 11:59 PM CDT Hospital Encounter [facility] [id number] [place] [id number] Type 2 diabetes mellitus with diabetic polyneuropathy, without long-term current use of insulin (HCC); Hyperlipidemia associated with type 2 diabetes mellitus (HCC); Hypertension associated with type 2 diabetes mellitus (HCC) Discharge Disposition: Discharge to home or self care 09/25/2024 12:30 PM CDT Lab [facility] at [address] [phone] 09/25/2024 11:30 AM CDT Office Visit [facility] Endocrinology [address] [place] [phone] Ramya Dao NP Type 2 diabetes mellitus with diabetic polyneuropathy, without long-term current use of insulin (HCC) (Primary Dx); Hypertension associated with type 2 diabetes mellitus (HCC); Hyperlipidemia associated with type 2 diabetes mellitus (HCC); Acquired hypothyroidism 08/08/2024 1:15 PM CDT - 08/08/2024 11:59 PM CDT Hospital Encounter [facility] [address] [place] [id number] Screening mammogram, encounter for Discharge Disposition: Discharge to home or self care 08/08/2024 Results [facility] [address] [address] Дмитрий Bone MD Screening Mammogram Bilateral W Yandel from Last 3 Months Immunizations Immunization Administration Dates Next Due Influenza, Quad, Adjuvantate d, Intramuscular 12/14/2020 Influenza, Quadrivalent, Hig h Dose, Preservative Free, Intrr 01/24/2024,12/13/2022,02/10/2022,12/14,12/04/2019,12/06/2017,01/03/2014 Influenza, Quadrivalent, Spl it, Preservative Free, Intramuscular 12/07/2016,01/28/2016 Influenza, Split 01/22/2013,01/06/2012, 1 Influenza, Trivalent, High D ose, Split, Preservative Free, Intramuscular 01/24/2024,12/06/2017,01/03/2014 Influenza, Trivalent, IM (MDV) 3,01/16/2012,02/06/2011,01/02,12/30/2010,02/01/2008,12/19/2006 Influenza, Trivalent, Preser vative Free, Intramuscular 11/29/2014 Influenza, Unspecified 01/17/2024(Deferr ed: Patient Refused),11/19/2022(Deferred: Patient Refused),12/14/2020,12/14/2020, 021,01/23/2019,12/06/2017,01/03/2014 Pneumococcal Conjugate PCV 13 06/21/2014, 015 Pneumococcal Conjugate Pcv20 05/11/2023 Pneumococcal Polysaccharide PPV23 2016,06/23/2016,07/09/2014,09/25 Td, adsorbed 09/25/2009 Tdap 03/24/2020,12/07/2016 ZOSTER LIVE 03/21/2012,03/21/2012 ZOSTER Recombinant 11/19/2019,02/21/2019 Surgical History Surgery Date Site/Laterality Comments OTHER SURGICAL HISTORY sleep apnea: cpap CARPAL TUNNEL RELEASE Carpal tunnel release KNEE ARTHROPLASTY Knee replacement OTHER SURGICAL HISTORY Spinal stenosis: injections OTHER SURGICAL HISTORY 03/21/2010 - 03/20/2011 Sinus issues TOTAL KNEE ARTHROPLASTY 03/21/2012 - 03/20/2013 Left Total Knee Replacement TOTAL KNEE ARTHROPLASTY Bilateral Total Knee Replacement HYSTERECTOMY Hysterectomy TONSILLECTOMY tonsilectomy TOTAL ABDOMINAL HYSTERECTOMY Hysterectomy, total OTHER SURGICAL HISTORY Rotator cuff tear, right: rotator cuff repair, right CATARACT EXTRACTION 03/21/2015 - 03/20/2016 Bilateral Cataract extraction LAPAROSCOPIC CHOLECYSTECTOMY pt denies HERNIA REPAIR Hernia surgery OTHER SURGICAL HISTORY cervical vertabra fusion OOPHORECTOMY NECK SURGERY fusion COLONOSCOPY last colonoscopy 2013 WISDOM TOOTH EXTRACTION 07/20/2019 - 08/19/2019 Medical History Medical History Date Comments Diabetes mellitus (HCC) diabetes mellitus Hypertension Hypertension Adiposity obesity Chronic coronary artery disease coronary artery disease Diabetes mellitus (HCC) diabetes mellitus; Comments: uncontrolled Sleep apnea 2003 sleep apnea; Out come: improved Arthritis Arthritis Spinal stenosis Spinal stenosis; Outcome: improved Type 2 diabetes mellitus (HCC) D iabetes type 2 Hyperlipidemia Hyperlipidemia Osteoporosis Osteoporosis Disorder of thyroid Thyroid dise ase Hx Other Medical 2010 Spinal Stenosis - Mild lumbar Hx Other Medical Diabetic Neurop athy Hx Other Medical 2010 Diabetic nephro tina Hx Other Medical Diabetes Type I I Asthma Asthma Hx Other Medical 2012 Asthma -- Dr. Teri german Hx Other Medical seborrheic derm atitis; Comments: JEN 02/25/2014 - Hx Other Medical spinal stenosis ; Comments: JEN 02/25/2014 - Hx Other Medical rosacea; Commen ts: JEN 02/25/2014 - Hx Other Medical Rotator cuff te ar, right; Comments: JEN 02/25/2014 - Hx Other Medical Osteopenia; Com ments: BENNY 02/02/2016 - Frequent urination Urinary urgency Hypothyroidism History of transfusion PONV (postoperative nausea and vomiting) GERD (gastroesophageal reflux disease) Food intolerance Esophageal stricture Family History Medical History Relation Name Comments Dementia Brother 1 Diabetes type II Brother 1 Diabetes -T ype II; Heart attack Brother 2 Myocardial infa rction; Diabetes type II Brother 3 Diabetes -T ype 2; Hypertension Brother 4 Hypertension; Bladder Cancer Father Cancer -bladd er; Kidney disease Father Renal disease ; Other Father Heart probl in 50's, in 80's bladder CA; Cause of : Heart probl in 50's, in 80's bladder CA Colon cancer Mother Cancer -colon; /Cancer, colon; Cause of : Cancer, colon Arthritis Other Cancer Other Heart disease Other Leukemia Paternal Grandmother Leukemi a; Breast cancer Neg Hx Ovarian cancer Neg Hx Thyroid cancer Neg Hx Relation Name Status Comments Brother 1 Brother 2 Brother 3 Brother 4 Father Mother (Age 95) Other Paternal Grandmother Social History Tobacco Use Types Packs/Day Years [...] on file Legal Sex Female 11:21 PM CORRECTIONAL CLASSIFICATION COUNSELOR Gender Identity Female 10/27/2023 1:08 PM CDT Sexual Orientation Not on file Obstetrics History Para Term AB IAB SAB Ectopic Multiple Livin g Live Births 3 3 3 Date Outcome GA Total Labor Labor/2nd/3rd Weight Sex Type Anes PTL Latasha A1 A5 Name Clin Term Term Term Last Filed Vital Signs Vital Sign Reading Time Taken Comments Blood Pressure 125/73 10/02/2024 4:37 PM CDT Pulse 76 10/02/2024 4:37 PM CDT Temperature 36.9 C (98.4 F) 07/13/2024 3:13 PM CDT Respiratory Rate 18 09/25/2024 11:26 AM CDT Oxygen Saturation 98% 07/13/2024 3:13 PM CDT Inhaled Oxygen Concentration - - Weight 70.3 kg (155 lb) 10/02/2024 4:37 PM CDT Height 152.4 cm (5') 10/02/2024 4:37 PM CDT Body Mass Index 30.27 10/02/2024 4:37 PM CDT Plan of Treatment Health Maintenance Due Date Last Done Comments Hepatitis B Screening 1963 Dilated Eye Exam 03/09/2023 03/09/2022, 12/2021, 10/04/2017 Covid-19 Vaccine (2023-04 5 season) 2023 03/19/2021, 06/24/2020, 05/22/2020 Osteoporosis Screening-Bone Density Scan 08/20/2024 08/20/2022, 08/20/2022, 12/17/2019, Additional history exists Influenza Vaccine (#1) 2024 , 01/24/2024, 12/13/2022, Additional history exists Depression Screening 02/21/2025 02/22/2024, 01/24/2024, 01/17/2024, Additional history exists Fall Risk Assessment 02/21/2025 02/22/2024, 01/24/2024, 01/17/2024, Additional history exists Well Visit 65+ 02/21/2025 02/22/2024, 01/20, 12/04/2019, Additional history exists Hemoglobin A1C 03/28/2025 09/25/2024, 09/2024, 11/24/2023, Additional history exists Albumin Creatinine Ratio, Urine 04/27/2025 04/27/2024, 03/29/2023, 07/20/2022, Additional history exists Foot Exam 04/27/2025 04/27/2024, 11/2023, 12/29/2021, Additional history exists Lipid Panel 09/25/2025 09/25/2024, 12/20, 09/08/2023, Additional history exists eGFR 09/25/2025 09/25/2024, 12/20, 09/08/2023, Additional history exists DTaP/Tdap/Td Vaccine (3 - Td or Tdap) 03/24/2030 03/24/2020, 12/07/2016, 09/25/2009 Zoster Vaccine Completed 11/19/2019, 12/0 06/2018, 03/21/2012, Additional history exists Pneumococcal vaccine 65+ Completed 024, 06/23/2016, 06/23/2016, Additional history exists Medical Devices Implanted Type Area Office Communication Professor Device Identifier Shelf Expiration Date Model / Serial / Lot Graft Soft Tissue Duragen Plus Bovine Collagen Matrix L1 In X W1 In Cranial Dura Patch Resorbable Suturable Sterile Duraplasty - [id number] Implanted:Qty: 1 on 04/01/2017 by Adalberto Orozco MD at [facility] Dura N/A: Spine Cervical Integra [employer] Alpesh [id number] 06/19/2019 [id number] / / [id number] Graft Bone Orthoblast Ii Demineralized Bone Matrix Cancellous 1 Cc Allograft Paste Syringe Sterile - [id number] - [id number] Implanted:Qty: 1 on 04/01/2017 by Adalberto Orozco MD at [facility] N/A: Spine Cervical [employer] Inc 12/16/2018 / [id number] / [id number] Screw Bone Trinica Titanium Angle L14 Mm Od4.2 Mm Spine Cervical Anterior Self Drill Variable Nonsterile Green Silver - [id number] Implanted:Qty: 10 on 04/01/2017 by Adalberto Orozco MD at [facility] N/A: Spine Cervical Abigail Spine [id number] / / Titanium Porous Coated Cervical Interbody Cage 14 X 11 X7mm, 0degree Implanted:Qty: 2 on 04/01/2017 by Adalberto Orozco MD at [facility] N/A: Spine Cervical Spinal Elements [id number] / / Titanium Porous Coated Cervical Interbody Cage 16 X 13 X 7mm, 7 Degree Implanted:Qty: 1 on 04/01/2017 by Adalberto Orozco MD at [facility] N/A: Spine Cervical Spinal Elements [id number] / / Titanium Porous Coated Cervical Interbody Cage 16 X 13 X 8mm, 7 Degree Implanted:Qty: 1 on 04/01/2017 by Adalberto Orozco MD at [facility] N/A: Spine Cervical Spinal Elements [id number] / / Plate Bone Trinica Titanium Standard L77 Mm Spine Cervical Anterior Level 4 Nonsterile - [id number] Implanted:Qty: 1 on 04/01/2017 by Adalberto Orozco MD at [facility] N/A: Spine Cervical Abigail Spine [id number] 4 / / Depuy Orthopaed[employer] Inc Actis Collared Hip 03/03 6 Standard Offset Stem Femoral [id number] - [id number] Implanted:Qty: 1 on 06/29/2023 by Javad Johnson MD at [facility] Right: Hip Depuy Orthopaedics Inc 12/18/2032 [id number] / / [id number] Depuy Orthopaed[employer] Inc Articul/Quintin 36mm Cementless Hip +1.5mm 03/03 Taper Head Femoral Latex Free [id number] - [id number] Implanted:Qty: 1 on 06/29/2023 by Javad Johnson MD at [facility] Right: Hip Depuy [employer]ed[employer] Inc 03/20/2028 [id number] / / [id number] Depuy Orth[employer]ed[employer] Inc Fedscreek 52mm Sector Hip Shell Acetabular Gription Sterile Latex Free [id number] - [id number] Implanted:Qty: 1 on 06/29/2023 by Javad Johnson MD at [facility] Right: Hip [employer]uy [employer] Inc 04/20/2033 [id number] / / [id number] Depuy [employer] Fedscreek 52mm 36mm Hip Neutral Liner Acetabular Altrx Sterile Latex Free [id number] - [id number] Implanted:Qty: 1 on 06/29/2023 by Javad Johnson MD at [facility] Right: Hip [employer] Inc 01/19/2028 [id number] / / [id number] Depuy [employer] Fedscreek 6.5mm 35mm Acetabular Cancellous Screw Bone Sterile 1217-35-500 - [id number] Implanted:Qty: 1 on 06/29/2023 by Javad Johnson MD at [facility] Right: Hip [employer] Inc 12/18/2032 [id number] / / [id number] Procedures Procedure Name Priority Date/Time Associated Diagnosis Comments EGFR Routine 09/25/2024 12:33 PM CDT Type 2 diabetes mellitus with diabetic polyneuropathy, without long-term current use of insulin (HCC) Hypertension associated with type 2 diabetes mellitus (HCC) COMPREHENSIVE METABOLIC PANEL Routine 09/25/2024 12:33 PM CDT Type 2 diabetes mellitus with diabetic polyneuropathy, without long-term current use of insulin (HCC) Hypertension associated with type 2 diabetes mellitus (HCC) LIPID PANEL Routine 09/25/2024 12:33 PM CDT Type 2 diabetes mellitus with diabetic polyneuropathy, without long-term current use of insulin (HCC) Hyperlipidemia associated with type 2 diabetes mellitus (HCC) POCT GLUCOSE Routine 09/25/2024 11:30 AM CDT Type 2 diabetes mellitus with diabetic polyneuropathy, without long-term current use of insulin (HCC) POCT HEMOGLOBIN A1C Routine 09/25/2024 1 1:30 AM CDT Type 2 diabetes mellitus with diabetic polyneuropathy, without long-term current use of insulin (HCC) SCREENING MAMMOGRAM BILATERAL W YANDEL Schedule Routine, Read Routine (OP Routine) 08/08/2024 1:51 PM CDT Screening mammogram, encounter for ALBUMIN CREATININE RATIO, URINE Routine 04/27/2024 9:33 AM CORRECTIONAL CLASSIFICATION COUNSELOR Type 2 diabetes mellitus with diabetic polyneuropathy, without long-term current use of insulin (HCC) DEXA AXIAL SKELETON BONE DENSITY 1 OR MORE SITES Schedule Routine, Read Routine (OP Routine) 08/20/2022 10:33 AM CDT Osteopenia of multiple sites DIABETIC EYE EXAM Routine 03/09/2022 from Last 3 Months or Most Recently Relevant to Health Maintenance Results * eGFR (09/25/2024 12:33 PM CDT) [facility] eGFR 76 >=60 mL/min/1. 73 m2 Comment: Interpretive Data Reference Interval Normal >/= 90 mL/min/1.73m2 Mildly decreased* 60 - 89 mL/min/1.73m2 Mildly to moderately decreased 45 - 59 mL/min/1.73m2 Moderately to severely decreased 30 - 44 mL/min/1.73m2 Severely decreased 15 - 29 mL/min/1.73m2 Kidney Failure < 15 mL/min/1.73m2 *Relative to young adult level Estimated glomerular filtration rate is determined by the 2020 CKD-EPI equation recommended by the National Kidney Foundation (A Unifying Approach to GFR Estimation: Recommendations of the NKF-ASK Task Force on Reassessing the Inclusion of Race in Diagnosing Kidney Disease, JASN 202). The CKD-EPI equation should not be used for patients with unstable renal function and has not been validated in children and those over 70. Current interpretive data was last reviewed 2021. Blood 09/25/2024 12:3 3 PM CDT 09/25/2024 8:12 PM CDT us Ramya Dao NP LAB BLOOD ORDERABLES Samantha leija Result [facility] [address] Department [place] [address] * (ABNORMAL) Lipid panel (09/25/2024 12:33 PM CDT) Cholesterol 139 30 - 199 mg/dL Comment: Interpretive Data Ages < or = 19 years Acceptable: <170 mg/dL Borderline high: 170-199 mg/dL High: >or= 200 mg/dL Ages > or = 20 years Desirable: <200 mg/dL Borderline high: 200-239 mg/dL High: >or= 240 mg/dL Literature References: 1. Expert Panel on Integrated Guidelines for Cardiovascular Health and Risk Reduction in Children and Adolescents. Pediatrics 2011;128:S213 2. NCEP Expert Panel. Circulation 2004;110:227 Current Interpretive Data was last revised on 2017. Triglycerides 192(H) <=149 mg/dL [facility] Comment: Interpretive Data Ages < or = 9 years Acceptable: <75 mg/dL Borderline high: 75-99 mg/dL High: >or= 100 mg/dL Ages 10 to 20 years Acceptable: <90 mg/dL Borderline high: 90-129 mg/dL High: >or= 130 mg/dL Ages > or = 20 years Desirable: <150 mg/dL Borderline high: 150-199 mg/dL High: 200-499 mg/dL Very high: >or= 499 mg/dL Literature References: 1. Expert Panel on Integrated Guidelines for Cardiovascular Health and Risk Reduction in Children and Adolescents. Pediatrics 2011;128:S213 2. NCEP Expert Panel. Circulation 2004;110:227 Current Interpretive Data was last revised on 2017. HDL 38(L) >=40 mg/dL [facility] Comment: Interpretive Data Ages < or = 19 years Acceptable: >45 mg/dL Borderline low: 40-45 mg/dL Low: <40 mg/dL Ages > or = 20 years Desirable: >or= 60 mg/dL Low: <40 mg/dL Literature References: 1. Expert Panel on Integrated Guidelines for Cardiovascular Health and Risk Reduction in Children and Adolescents. Pediatrics 2011;128:S213 2. NCEP Expert Panel. Circulation 2004;110:227 Current Interpretive Data was last revised on 2017. LDL, calculated 69 <=129 mg/dL [facility] Comment: Interpretive Data Ages < or = 19 years Acceptable: <110 mg/dL Borderline high: 110-129 mg/dL High: >or= 130 mg/dL Ages > or = 20 years Optimal: <100 mg/dL Near optimal: 100-129 mg/dL Borderline high: 130-159 mg/dL High: >160 mg/dL Calculated using the Jonathan LDL-C estimating equation. This equation was implemented on 2023. Prior to this date LDL-C was estimated using the Friedewald equation. Literature References: 1. Expert Panel on Integrated Guidelines for Cardiovascular Health and Risk Reduction in Children and Adolescents. Pediatrics 2011;128:S213 2. NCEP Expert Panel. Circulation 2004;110:227 3. Jonathan Bennett et al. MONET Cardiol. 2020 July 19;5(5):540-548. doi: 10.1001/jamacardio.2020.0013 Current Interpretive Data was last revised on 2023. Non-HDL Cholesterol 101 mg/dL [facility] Comment: Interpretive Data Ages < or = 19 years Acceptable: <120 mg/dL Borderline high: 120-144 mg/dL High: >145 mg/dL Ages > or = 20 years When triglycerides are >200 mg/dL, Non-HDL cholesterol is a secondary target of therapy with treatment goals that are 30 mg/dL greater than the LDL cholesterol target. Literature References: 1. Expert Panel on Integrated Guidelines for Cardiovascular Health and Risk Reduction in Children and Adolescents. Pediatrics 2011;128:S213 2. NCEP Expert Panel. Circulation 2004;110:227 Current Interpretive Data was last revised on 2017. Chol/HDL ratio 4 [facility] Blood 09/25/2024 12:3 3 PM CDT 09/25/2024 7:20 PM CDT us Ramya Dao NP LAB BLOOD ORDERABLES Samantha l Result [facility] [address] [place] [address] * (ABNORMAL) Comprehensive metabolic panel (09/25/2024 12:33 PM CDT) Sodium 139 135 - 145 mmol/L Potassium, pl 4.4 3.3 - 4.9 mmol/L [facility] Chloride 100 97 - 110 mmol/L [facility] CO2 28 22 - 32 mmol/L [facility] Anion gap 11 2 - 15 mmol/L [facility] BUN 15 6 - 25 mg/dL [facility] Creatinine 0.78 0.60 - 1.10 mg/dL [facility] Glucose 214(H) 70 - 199 mg/dL [facility] Comment: Interpretive Data Fasting glucose >/= 126 mg/dl is diagnostic for diabetes. Fasting is defined as no caloric intake for at least 8 hours. Fasting glucose between 100 mg/dl to 125 mg/dl is diagnostic of prediabetes. In a patient with classic symptoms of hyperglycemia or hyperglycemic crisis, a random glucose >/= 200 mg/dl is diagnostic for diabetes. In the absence of unequivocal hyperglycemia, results should be confirmed by repeat testing. The classification and Diagnosis of Diabetes Diabetes Care 2021; 46: S19-S40. Current interpretive data was last revised 2022. Calcium 9.5 8.5 - 10.3 mg/dL [facility] Bilirubin, total 0.4 0.1 - 1.2 mg/dL [facility] Protein, pl 7.5 6.5 - 8.5 g/dL [facility] Albumin 4.2 3.5 - 5.0 g/dL [facility] Alk phos 86 40 - 130 Units/L [facility] ALT 21 7 - 45 Units/L [facility] AST 30 10 - 45 Units/L [facility] Blood 09/25/2024 12:3 3 PM CDT 09/25/2024 7:20 PM CDT Ramya Dao NP LAB BLOOD ORDERABLES Samantha l Result [facility] [id number] Department [place] [address] * (ABNORMAL) POCT hemoglobin A1c (09/25/2024 11:30 AM CDT) Hemoglobin A1C, POC 8.7(A) 4.0 - 5.6 % Blood 09/25/2024 11:3 0 AM CDT Ramya Dao NP POINT OF CARE TEST ORDERA BLES Final Result * (ABNORMAL) POCT glucose (09/25/2024 11:30 AM CDT) Glucose Blood, POC 259 Normal Fasting 70 - 100, Random <200 mg/dL Blood 09/25/2024 11:3 0 AM CDT Ramya Dao NP POINT OF CARE TEST ORDERA BLES Final Result * Screening Mammogram Bilateral W Yandel (08/08/2024 1:51 PM CDT) Anatomical Region Laterality Modality Breast Bilateral Mammography Impressions 08/08/2024 1:57 PM CDT Bilateral No evidence of malignancy in either breast. OVERALL BI-RADS FINAL ASSESSMENT: 2 - Benign RECOMMENDATION: Recommend bilateral annual screening mammography. Narrative 08/08/2024 1:57 PM CDT EXAMINATION: Screening Mammogram Bilateral W Yandel: 08/08/2024 COMPARISON: Relevant prior studies available at the time of interpretation were reviewed. TECHNIQUE: Mammography was performed with 2D and digital breast tomosynthesis (DBT) images. CAD was utilized. BREAST PARENCHYMAL COMPOSITION: There are scattered areas of fibroglandular density. FINDINGS: There are unchanged benign scattered calcifications in both breasts. There is no suspicious mass, calcification, or architectural distortion in either breast. us Self Screening Mammogram IMG MAMMO PROCEDURES Fi nal Result * (ABNORMAL) Albumin Creatinine Ratio, Urine (04/27/2024 9:33 AM CORRECTIONAL CLASSIFICATION COUNSELOR) Albumin Ur 57.1 mg/L Comment: Interpretive Data No reference range established. Current interpretive data was last revised 2018. Creatinine Ur 107.1 mg/dL [facility] Comment: Interpretive Data No reference range established. Current interpretive data was last revised 2018. Albumin Creatinine Ratio, Ur 53(H) 1 - 29 mg/g [facility] Urine 04/27/2024 9:33 AM CORRECTIONAL CLASSIFICATION COUNSELOR 04/27/2024 8:23 PM CORRECTIONAL CLASSIFICATION COUNSELOR Ramya Dao NP LAB URINE ORDERABLES Samantha l Result [facility] [address] [place] [address] * Dexa Axial Skeleton Bone Density 1 or 2 Site (08/20/2022 10:33 AM CDT) Anatomical Region Laterality Modality Body N/A Other 08/20/2022 9:52 PM CDT Narrative 08/20/2022 9:53 PM CDT EXAM DESCRIPTION: DEXA AXIAL SKELETON BONE DENSITY 1 OR MORE SITES REASON FOR STUDY: 77 y/o year old F with given history of screening. 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 LEFT HIP: Total BMD is 0.638 g/cm2 T-score is -2.5 Dissimilar scan types or analysis methods precludes assessment for calculating a significant change. Femoral neck BMD is 0.594 g/cm2 T-score is -2.3 FRAX: FRAX not reported due to T-scores of hip, femoral neck and/or spine being at or below -2.5 (Osteoporosis). IMPRESSION: Osteoporosis. REFERENCE: Bone mineral density: Normal (T-score above or = -1.0) Low bone mass (T-score between -1.0 and -2.5) replaces the previously used term osteopenia Osteoporosis (T-score = or below -2.5) Medical evaluation for secondary causes of low bone mineral density may be appropriate. FRAX is a World Health Organization validated fracture risk assessment tool that calculates a person's 10 year probability of a major osteoporosis related fracture and hip fracture. According to the National Osteoporosis Foundation guidelines, postmenopausal women and men age 50 or older with low bone mass and a 10 year probability of a major osteoporosis related fracture = or greater than 20% or a 10 year probability of a hip fracture = or greater than 3% should be considered for treatment. For further information, including treatment recommendations, please refer to the 2019 ISCD Official Positions (http://www.iscd.org) and the NOF's Clinician's Guide to Prevention and Treatment of Osteoporosis (http://www.nof.org/professionals/clinical-guidelines) THIS IS AN ELECTRONICALLY VERIFIED FINAL REPORT 08/20/2022 9:53 PM - Electronically signed by Azam Hein M.D. MF: [email or web address] Report ID: [id number] Reading Location: [place] [address] Procedure Note Azam Hein MD - 08/20/2022 EXAM DESCRIPTION: DEXA AXIAL SKELETON BONE DENSITY 1 OR MORE SITES REASON FOR STUDY: 77 y/o year old F with given history of screening. Office Communication Professor/Model: [email or web address] (S/N [id number]) CLINICAL INFORMATION: Current height: 60 inches Maximum height: 64 inches Weight: 146 pounds Risk factors: Postmenopausal, prior hip/vertebral fracture, adultfracture, rheumatoid arthritis, asthma or emphysema COMPARISON: 12/09/2019, 09/28/2018, 03/15/2014 FINDINGS: AP LUMBAR SPINE L1-L4: Total BMD is 1.082 g/cm2 T-score is 0.3 Dissimilar scan types or analysis methods precludes assessment for calculating a significant change. LEFT HIP: Total BMD is 0.638 g/cm2 T-score is -2.5 Dissimilar scan types or analysis methods precludes assessment for calculating a significant change. Femoral neck BMD is 0.594 g/cm2 T-score is -2.3 FRAX: FRAX not reported due to T-scores of hip, femoral neck and/or spine beingat or below -2.5 (Osteoporosis). IMPRESSION: Osteoporosis. REFERENCE: Bone mineral density: Normal (T-score above or = -1.0) Low bone mass (T-score between -1.0 and -2.5) replaces thepreviously used term osteopenia Osteoporosis (T-score = or below -2.5) Medical evaluation for secondary causes of low bone mineral density may be appropriate. FRAX is a World Health Organization validated fracture risk assessmenttool that calculates a person's 10 year probability of a major osteoporosisrelated fracture and hip fracture. According to the National OsteoporosisFoundation guidelines, postmenopausal women and men age 50 or older with low bonemass and a 10 year probability of a major osteoporosis related fracture = or greater than 20% or a 10 year probability of a hip fracture = or greaterthan 3% should be considered for treatment. For further information, including treatment recommendations, please referto the 2019 ISCD Official Positions (http://www.iscd.org) and the NOF's Clinician's Guide to Prevention and Treatment of Osteoporosis (http://www.nof.org/professionals/clinical-guidelines) THIS IS AN ELECTRONICALLY VERIFIED FINAL REPORT 08/20/2022 9:53 PM - Electronically signed by Azam Hein M.D. MF: [email or web address] Report ID: [id number] Reading Location: [place] [address] Susan Nava EMBROIDERY WORKER IMG DXA PROCEDURES Final R esult * (ABNORMAL) Diabetic Eye Exam (03/09/2022) Historical Provider HEALTH MAINTENANCE Edited Result - Final from Last 3 Months or Most Recently Relevant to Health Maintenance Insurance [employer] Advance Directives For more information, please contact: [phone] * Full Code (Latest Code Status on File) Date Activated Date Inactivated Comments 06/29/2023 2:58 PM 06/30/2023 4:43 PM * Full Code Date Activated Date Inactivated Comments 02/22/2018 12:15 PM 02/22/2018 3:50 PM * Full Code Date Activated Date Inactivated Comments 04/01/2017 2:44 PM 04/03/2017 3:18 PM Care Teams Bottle Inspector Relationship Specialty Start Date End Date Дмитрий Bone MD [address] [place] [address] PCP - General 06/18/16 Tejal Mcduffie MA [address] [place] [address] [address] [place] [address] ACO Care Direct Sales Representative 03/04/21 Javad Johnson MD [address] [place] [address] [address] [place] [address] Surgeon Orthopedic Surgery 06/30/23
--- OUTSIDE RECORDS SUMMARY | 2024-10-19 02:23 | XMS_ITS | Referral Summary ---
Author Organization [facility] Address [address] [place] [address] Care Team Providers Care Scrap Burner Name Role Phone Дмитрий Bone MD Primary Care Provider [phone] Tejal Mcduffie MA Unavailable Javad Johnson MD Unavailable Encounters Date Type Department Care Team Description 10/04/2024 Telephone [facility] Medicine 6th [place] [address] [place] [address] Elvira Coles 10/03/2024 Telephone [facility] First Floor [address] [place] [address] Virginie Freed, A Med Management 10/02/2024 Telephone [facility] [address] [facility] Medicine 6th [place] [address] [place] [address] Elvira Coles 10/02/2024 4:00 PM CDT Office Visit [facility] [place] [address] [facility] Medicine 6th [place] [address] [place] [address] Smitha Acuna MD Mild cognitive impairment (Primary Dx); Abnormal brain scan 09/26/2024 Results Follow-Up [facility] Diabetes and Endocrinology [address] [place] [phone] Ramya Dao NP Lipid panel, Comprehensive metabolic panel, eGFR 09/25/2024 12:33 PM CDT - 09/25/2024 11:59 PM CDT Hospital Encounter [address] [address] Type 2 diabetes mellitus with diabetic polyneuropathy, without long-term current use of insulin (HCC); Hyperlipidemia associated with type 2 diabetes mellitus (HCC); Hypertension associated with type 2 diabetes mellitus (HCC) Discharge Disposition: Discharge to home or self care 09/25/2024 12:30 PM CDT Lab [facility] Outpatient Lab at [address] [address] 09/25/2024 11:30 AM CDT Office Visit [facility] Diabetes and Endocrinology [address] [place] [phone] Ramya Dao NP Type 2 diabetes mellitus with diabetic polyneuropathy, without long-term current use of insulin (HCC) (Primary Dx); Hypertension associated with type 2 diabetes mellitus (HCC); Hyperlipidemia associated with type 2 diabetes mellitus (HCC); Acquired hypothyroidism 08/08/2024 Results [facility] [address] [address] Дмитрий Bone MD Screening Mammogram Bilateral [facility] 08/08/2024 1:15 PM CDT - 08/08/2024 11:59 PM CDT Hospital Encounter [facility] [address] [place] [phone] Screening mammogram, encounter for Discharge Disposition: Discharge to home or self care from Last 3 Months Allergies Active Allergy Reactions Criticality Noted Date [...] 3 mL 4 (four) times a day Active hypochlorous acid-sodium chlor 0.01 % spray,non-aerosol [...] hyperglycemia, without long-term current use of insulin (HCC) Use to test blood glucose 1 time daily Dx: E11.9 Non Insulin Dependent 100 each 11 023 Active OneTouch Ultra2 Meter misc USE TO CHECK BLOOD SUGAR DAILY Active blood glucose diagnostic (OneTouch Ultra Test) stripIndications: Type 2 diabetes mellitus with hyperglycemia, without long-term current use of insulin (HCC) USE TO CHECK BLOOD SUGAR 1 TIME DAILY. ONE TOUCH ULTRA TEST STRIPS. NON INSULIN DEPENDENT DX: E11.9 100 strip 3 024 Active senna-docusate (PERICOLACE) 8.6-50 mgIndications:con stipation Take 2 tablets by mouth 2 (two) times a day 60 tablet 2 024 Active aspirin 81 mg enteric coated tablet [...] ONE TABLET EVERY DAY 100 tablet 1 /20/2 025 Active furosemide (LASIX) 40 mg tablet TAKE ONE TABLET EVERY DAY [address] (CYMBALTA) 30 mg capsuleIndication s:Moderate episode of recurrent major depressive disorder (HCC) TAKE 1 CAPSULE (30 MG TOTAL) BY MOUTH 2 (TWO) TIMES A DAY 180 capsule 2025 Active omeprazole (PriLOSEC) 20 mg capsuleIndication s:Gastroesophagea l reflux disease, unspecified whether esophagitis present TAKE 1 CAPSULE (20 MG TOTAL) BY MOUTH DAILY 90 capsule Active levothyroxine (SYNTHROID) 50 mcg tabletIndications :Acquired hypothyroidism TAKE 1 TABLET (50 MCG TOTAL) BY MOUTH DAILY 90 tablet Active metoprolol XL (TOPROL-XL) 25 mg extended release tablet Take 1 tablet (25 mg total) by mouth daily 90 tablet Active tiZANidine (ZANAFLEX) 2 mg tablet Take [...] mg total) by mouth daily 30 tablet 2025 Active donepeziL (ARICEPT) 10 mg tablet Take 1 tablet (10 mg total) by mouth daily with breakfast 30 tablet Active amLODIPine (NORVASC) 10 mg tablet TAKE ONE TABLET EVERY DAY 90 tablet Active SITagliptin phosphate (Januvia) 100 mg tabletIndications :Type 2 diabetes mellitus with diabetic polyneuropathy, without long-term current use of insulin ([facility]) TAKE ONE TABLET EVERY DAY 90 tablet 3 Active rosuvastatin (CRESTOR) 20 mg tabletIndications :Hyperlipidemia associated with type 2 diabetes mellitus (HCC) TAKE ONE TABLET EVERY DAY 100 tablet Active montelukast (Singulair) 10 mg tabletIndications :Non-seasonal [...] ordered. - Order cervical spine x-ray at [facility]. - Prescribe mild muscle relaxant for bedtime use. - Continue naproxen and topical treatments. - Advise ice packs for 15 minutes. Mild cognitive impairment 03/05/2024 Assessment & Plan (03/05/2024 2:17 PM MULTIGRAPHER): Overall, stable cognitive testing. Continue donepezil/Aricept 5 mg daily. May benefit from increasing duloxetine/Cymbalta dose to improve mood. Encouraged patient to keep using her CPAP machine. Follow-up scheduled with Dr. Acuna in September 2024. Annual physical exam 02/29/2024 Assessment & Plan (02/29/2024 8:19 AM MULTIGRAPHER): Focus of exam is prevnetative in nature. Reviwed immunizaiotns, reivewed sun/skin cancer screening. Reviewed age and comorbidity appropriate screening and will montior response. Encourage fall prevention and healthy food choices. Moderate late onset Alzheime r's dementia without behavioral disturbance, psychotic disturbance, mood disturbance, or anxiety 02/05/2024 Assessment & Plan (02/29/2024 8:18 AM MULTIGRAPHER): Continues on donepezil and will monitor response. No side effects noted. Assessment & Plan (02/05/2024 7:31 AM MULTIGRAPHER): Contineus on donepezil. Continue f/u with [facility] at [facility]. Continues to adapt well with list making and note taking. Dysphagia 02/05/2024 Assessment & Plan (02/05/2024 7:31 AM MULTIGRAPHER): COntinue f/u with GI for probable EGD and will montiro eropsnse. Fecal soiling 02/05/2024 Assessment & Plan (02/05/2024 7:32 AM MULTIGRAPHER): Fecal urgency and will motnrioresponse. BMI 30.0-30.9,adult 02/05/2024 Assessment & Plan (02/29/2024 8:18 AM MULTIGRAPHER): ENcourage healthy food chocies and continues to be active at [facility] and in exercise program. Obesity (BMI 30.0-34.9) 02/05/2024 Assessment & Plan (02/29/2024 8:18 AM MULTIGRAPHER): As above. Pitting edema 01/17/2024 Assessment & [...] changes. Assessment & Plan (04/27/2024 10:15 AM MULTIGRAPHER): Chronic problem. Controlled on current amlodipine 10 mg daily, furosemide 40mg daily, metoprolol succinate 25mg daily Assessment & Plan (02/05/2024 7:31 AM MULTIGRAPHER): Stable on fursodmeid en ad metoprolol and amlodipine. WIll montior erpsonse. Assessment & Plan (01/17/2024 8:41 AM CDT): Blood pressure controlled and will continue on Metoprolol and Amlodipine. Follows with Cardiology. Assessment & Plan (03/29/2023 11:35 AM MULTIGRAPHER): Chronic problem. Controlled on current amlodipine 5mg daily. Labs ordered. Verified that she uses mychart. Aware to check results/results letter in [employer]. Will contact by phone if needed. Assessment [...] 04/10/2020 Assessment & Plan (04/10/2020 8:58 AM MULTIGRAPHER): Oxybutynin refilled. Reviewed med SE & scheduling. Reports improvement w/medication. Dry eyes 04/10/2020 Assessment & Plan (08/10/2022 10:11 AM CDT): Continue following with Ophthalmology as directed. Assessment & Plan (04/10/2020 8:58 AM MULTIGRAPHER): Xiidra eye gtts refilled. Uses bilaterally bid. [...] healthier, we can set up appointment with traveling representative/robotics engineer. 3. Have an active lifestyle, strive for [...] (08/10/2022 10:12 AM CDT): Compliant with the [facility]. Due for follow-up DEXA. Ordered. Will plan accordingly once results are received. Continue calcium, vitamin-D, weight-bearing exercise. Assessment & Plan (04/10/2020 8:55 AM MULTIGRAPHER): Follow a Bone Healthy Diet and lifestyle: [...] 05/18/2019 Assessment & Plan (02/29/2024 8:17 AM MULTIGRAPHER): Stable on PPI and will monitor rsepone. Continue to follow response. No dysphagia. Assessment & Plan (04/10/2020 8:59 AM MULTIGRAPHER): Omeprazole refilled. Has lost 6# since 01/2020 [...] p.r.n. Assessment & Plan (05/18/2019 1:16 PM MULTIGRAPHER): Intermittently symptomatic. Patient was counseled as regards her diet and lifestyle. Continue omeprazole. Prescription refilled and sent to [email or web address]. 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 WIll follow response. Assessment & Plan (12/08/2019 10:51 PM CDT): Again spoke at length re: husgand, family farm & children. Doing well. Reports good control of depression w/current regimen. No changes to be made at this time. Reviewed med Ses & scheduling. Reviewed red flags. Assessment & Plan (02/21/2019 5:34 PM MULTIGRAPHER): Spoke at length re: husbands , 1st thanksgiving/Harmans since his , living alone. Tearful during [...] perform monthly SBE. Encounter for well woman exnelly m with routine gynecological exam 09/08/2018 Assessment & [...] 06/13/2018 Assessment & Plan (02/29/2024 8:16 AM MULTIGRAPHER): Reivewed tylenol dosing and reviewed topical agents. [...] bolus. Assessment & Plan (05/18/2019 1:17 PM MULTIGRAPHER): Chronic. Likely complicated because of cervical spine [...] for the endoscopy to with [facility] as recommended. Assessment & Plan (09/07/2017 4:35 [...] Rosuvastatin 20mg. Last lipid panel: 01/17/24 LDL=82, OE=626. Will update labs. Verified that she uses [employer]. Aware to check results/results letter in [employer]. Will contact by phone if needed. Assessment & Plan (04/27/2024 9:54 AM MULTIGRAPHER): Chronic problem. Controlled on current Rosuvastatin 20mg. Last lipid panel: 01/17/24 LDL=82, UC=661. Assessment & Plan (02/29/2024 8:17 AM MULTIGRAPHER): Stable on rosuvastatin and will cotinue to follow response. NO new arthralgias/myalgias. Assessment & Plan (02/05/2024 7:30 AM MULTIGRAPHER): Stable on rosuvastatin and will continue to follow with mylagias. Assessment & Plan (01/17/2024 8:41 AM CDT): Lipid panel ordered. Will continue to take Rosuvastatin. Assessment & Plan (11/24/2023 3:19 PM CDT): Chronic, stable. Continue rosuvastatin Assessment & Plan (03/29/2023 10:53 AM MULTIGRAPHER): Chronic problem. Controlled on current Rosuvastatin 20mg. Last lipid panel: 02/10/22 LDL=19, MJ=777 Labs ordered. Verified that she uses [employer]. Aware to check results/results letter in [employer]. Will contact by phone if needed. Assessment & Plan (11/23/2022 1:57 PM CDT): Chronic problem. Controlled on current Rosuvastatin 20mg. Last lipid panel: 02/10/22 LDL=19, MG=416. No changes at this time. Assessment & Plan (08/10/2022 10:11 AM CDT): Secondary prevention. Reviewed medications. Lipid panel ordered; will call w/results when rec'd. Denies any statin Ses. Reviewed diet/exercise recommendations. Reviewed red flags. Assessment & Plan (07/20/2022 11:30 AM CDT): Chronic problem. Controlled on current Rosuvastatin 20mg. Last lipid panel: 02/10/22 LDL=19, ID=393. No changes at this time. Assessment & [...] Crestor Assessment & Plan (04/09/2020 8:36 PM MULTIGRAPHER): Lab Results Component Value Date CHOL 134 [...] flags. Assessment & Plan (05/17/2019 12:21 PM MULTIGRAPHER): Goal of treatment , LDL cholesterol less [...] therapy Assessment & Plan (02/21/2018 11:05 AM MULTIGRAPHER): Goal of treatment , LDL cholesterol less [...] 02/22/2017 Assessment & Plan (02/22/2017 6:38 PM MULTIGRAPHER): Patient has coronary artery calcification, presumably early [...] therapy Assessment & Plan (02/08/2017 4:06 PM MULTIGRAPHER): Goal of treatment , LDL cholesterol less [...] mychart. Aware to check results/results letter in [employer]. Will contact by phone if needed. Due [...] infection. Assessment & Plan (04/27/2024 10:19 AM MULTIGRAPHER): Chronic problem. A1c not at goal but improved from 8.8% 11/24/23 to now 8.4%. no hypoglycemia. Current medications: Januvia 100mg daily Will update MA/Cr. Verified that she uses mychart. Aware to check results/results letter in [employer]. Will contact by phone if needed. Due [...] infection. Assessment & Plan (02/29/2024 8:16 AM MULTIGRAPHER): Reviweed glycemic control and will montior response. Continue to follow home BP. No side effects to medication, no sypmtomatic hypoglycemia. Assessment & Plan (02/05/2024 7:30 AM MULTIGRAPHER): Reivewed secondary prevneiton. Continue son Chuck and [...] alone Assessment & Plan (03/29/2023 11:35 AM MULTIGRAPHER): Chronic problem. A1c worsened from 7.1% 11/23/22 to now 7.9%. no hypoglycemia. Has been missing medications. Farxiga will be stopped d/t incontinence issues. Will continue Januvia (has been missing most of her doses). Current medications: Januvia 100mg daily Will update labs today. Verified that she uses mychart. Aware to check results/results letter in [employer]. Will contact by phone if needed. Due [...] Will update MA/Cr. Verified that she uses [employer]. Aware to check results/results letter in [employer]. Will contact by phone if needed. Last [...] Farxiga Assessment & Plan (04/10/2020 8:56 AM MULTIGRAPHER): Managed by Dr Peralta. Next appt 06/19/20 [...] evaluation. Assessment & Plan (02/07/2020 4:43 PM MULTIGRAPHER): Hba1c was Lab Results Component Value Date [...] glucose monitoring with fingers sticks Medications: Continue Chuck Molina Assessment & Plan (05/17/2019 12:20 PM MULTIGRAPHER): Hba1c was Lab Results Component Value Date [...] Metformin Assessment & Plan (02/21/2018 11:05 AM MULTIGRAPHER): Hba1c was Lab Results Component Value Date [...] goal hba1c is under 7.0 to prevent long term care phlebotomist diabetes complications ( eye , kidney and [...] visit. 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 No active anginal s/s. Assessment & Plan (02/05/2024 7:30 AM MULTIGRAPHER): Secondary prevnetion. Continues on rosuvastatin and will [...] Micardis Assessment & Plan (04/09/2020 8:37 PM MULTIGRAPHER): The blood pressure is under good control. [...] meds, Assessment & Plan (05/17/2019 12:20 PM MULTIGRAPHER): Goal blood pressure is less than 140/85 [...] ARB Assessment & Plan (02/21/2018 11:06 AM MULTIGRAPHER): Goal blood pressure is less than 140/85 Low salt diet recommended Daily aerobic exercise Continue current meds, including RAFAEL-I or ARB Assessment & Plan (02/22/2017 6:43 PM MULTIGRAPHER): Hypertension is not at goal today, but blood pressure has been well in the last few visits. Assessment & Plan (02/08/2017 4:04 PM MULTIGRAPHER): Goal blood pressure is less than 140/85 [...] stenosis Assessment & Plan (02/21/2019 4:55 PM MULTIGRAPHER): Sees Dr Ward for pain mgmt. Has f/u appt 02/27/19 after MRI. Denies b/b dysfunction. Seborrheic eczema 10/31/2013 Assessment & Plan (04/10/2020 8:56 AM MULTIGRAPHER): Ovace cream refilled. Rosacea 10/31/2013 Allergic rhinitis 02/05/2013 Overview (08/29/2017): Allergic rhinitis Assessment & Plan (04/10/2020 8:56 AM MULTIGRAPHER): singulair refilled. Reviewed med SE & scheduling. Hypothyroidism 02/05/2013 Overview (06/25/2016): HYPOTHYROIDISM NOS Assessment & Plan (09/25/2024 11:43 AM CDT): Chronic problem. Managed by PCP. Currently on Levothyroxine 50mcg daily. Assessment & Plan (04/27/2024 9:54 AM MULTIGRAPHER): Chronic problem. Managed by PCP. Currently on Levothyroxine 50mcg daily. Assessment & Plan (02/29/2024 8:17 AM MULTIGRAPHER): Continue to follow TFTs. Clinically euthyroid. Assessment & Plan (02/05/2024 7:31 AM MULTIGRAPHER): Clnically euthryoid> C upzryo6ke o follow TFts. Assessment & Plan (01/17/2024 [...] meds. Assessment & Plan (04/09/2020 8:37 PM MULTIGRAPHER): TSH/T4 ordered; will contact with results when [...] deficiency Assessment & Plan (04/09/2020 8:39 PM MULTIGRAPHER): Last D levels 39. No changes. Assessment & Plan (10/11/2017 9:54 AM CDT): Check vit D levels Adjust if indicated Knee joint replacement by other means 04/26/2012 SUNIL (obstructive sleep apnea) 03/30/2012 Assessment & Plan (02/29/2024 8:16 AM MULTIGRAPHER): Reivewed nightly postivie pressure and will monitor [...] 04/26/2024 Assessment & Plan (02/29/2024 8:18 AM MULTIGRAPHER): Stsable o amlodipine and toprol. Margaux follow [...] physical activity. Joining swim classes at [employer] in [place]. Fracture of distal phalanx o f left ring finger 09/13/2019 04/09/2020 Finger pain, left 08/27/2019 04/09/2020 Fecal smearing 05/18/2019 04/09/2020 Assessment & Plan (09/07/2019 12:18 PM CDT): Symptoms are better. Anorectal manometry was normal. I reviewed the report with the patient. She was advised to continue fiber supplement. Assessment & Plan (05/18/2019 1:17 PM MULTIGRAPHER): New onset. Rectal exam revealed no palpable lesion. She was counseled to start on Benefiber once a day. She is referred for anorectal manometry. Viral URI with cough 03/22/2019 021 Assessment & Plan (03/22/2019 10:16 PM MULTIGRAPHER): This looks viral in nature and should [...] 22 Assessment & Plan (04/10/2020 8:59 AM MULTIGRAPHER): Reviewed need to lose weight, reviewed health benefits. Reviewed recommendations for daily intake & activity 20-30 minutes/day. Discussed healthy diet and importance of regular physical activity. Has lost 6# since 01/2020 appt. Assessment & Plan (03/22/2019 10:16 PM MULTIGRAPHER): Reviewed need to lose weight, reviewed health benefits. Reviewed recommendations for daily intake & activity 20-30 minutes/day. Discussed healthy diet and importance of regular physical activity. Right hip pain 02/21/2019 04/09/2020 Assessment & Plan (02/21/2019 4:59 PM MULTIGRAPHER): R hip xr ordered. Will contact w/results once rec'd. Discussed possible pain radiation from lumbar stenosis. Discussed possible OA as cause of pain. Nasal sore 11/13/2018 03/22/2019 Assessment & Plan (02/21/2019 4:56 PM MULTIGRAPHER): bactroban ointment for nasal ulcerations. Aware to [...] 04/10/2020 Assessment & Plan (04/09/2020 8:38 PM MULTIGRAPHER): Follow a Bone Healthy Diet and lifestyle: [...] 04/09/2020 Arthralgia of ankle 01/30/2009 04/09/19 21 Immunizations Immunization Administration Dates Next Due Influenza, [...] 03/24/2020,12/07/2016 ZOSTER LIVE 03/21/2012,03/21/2012 ZOSTER Recombinant 11/19/2019,02/21/2019 Social History Tobacco Use Types Packs/Day Years [...] on file Legal Sex Female 11:21 PM MULTIGRAPHER Gender Identity Female 10/27/2023 1:08 PM CDT Sexual Orientation Not on file Last Filed [...] 10/02/2024 4:37 PM CDT Plan of Treatment Not on file Medical Devices Implanted Type Area Talkback Host Device Identifier Shelf Expiration Date Model / Serial / Lot Graft Soft Tissue Duragen Plus Bovine Collagen Matrix L1 In X W1 In Cranial Dura Patch Resorbable Suturable Sterile Duraplasty - [id number] Implanted:Qty: 1 on 04/01/2017 by Adalberto Orozco MD at [facility] Dura N/A: Spine Cervical [facility] [id number] 06/19/2019 -1011 / / [id number] Graft Bone Orthoblast Ii Demineralized Bone Matrix Cancellous 1 Cc Allograft Paste Syringe Sterile - [id number] - [id number] Implanted:Qty: 1 on 04/01/2017 by Adalberto Orozco MD at [facility] N/A: Spine Cervical [employer] 12/16/2018-010 / [id number] / [id number] Screw Bone Trinica Titanium Angle L14 Mm Od4.2 Mm Spine Cervical Anterior Self Drill Variable Nonsterile Green Silver - [id number] Implanted:Qty: 10 on 04/01/2017 by Adalberto Orozco MD at [facility] N/A: Spine Cervical Abigail Spine 07.67501.00 5 / / Titanium Porous Coated Cervical Interbody Cage 14 X 11 X7mm, 0degree Implanted:Qty: 2 on 04/01/2017 by Adalberto Orozco MD at [facility] N/A: Spine Cervical Spinal Elements [id number] / / Titanium Porous Coated Cervical Interbody Cage 16 X 13 X 7mm, 7 Degree Implanted:Qty: 1 on 04/01/2017 by Adalberto Orozco MD at [facility] N/A: Spine Cervical Spinal Elements [id number] / / Titanium Porous Coated Cervical Interbody Cage 16 X 13 X 8mm, 7 Degree Implanted:Qty: 1 on 04/01/2017 by Adalberto Orozco MD at [facility] N/A: Spine Cervical Spinal Elements [id number] / / Plate Bone Trinica Titanium Standard L77 Mm Spine Cervical Anterior Level 4 Nonsterile - [id number] Implanted:Qty: 1 on 04/01/2017 by Adalberto Orozco MD at [facility] N/A: Spine Cervical Abigail Spine 07.93664.00 4 / / Depuy [employer] Actis Collared Hip 03/03 6 Standard Offset Stem Femoral [id number] - [id number] Implanted:Qty: 1 on 06/29/2023 by Javad Johnson MD at [facility] Right: Hip [employer] 12/18/2032 [id number] / / [id number] [employer] Articul/Quintin 36mm Cementless Hip +1.5mm 03/03 Taper Head Femoral Latex Free [id number] - [id number] Implanted:Qty: 1 on 06/29/2023 by Javad Johnson MD at [facility] Right: Hip [employer] 03/20/2028 [id number] / / [id number] Dep[employer] [place] 52mm Sector Hip Shell Acetabular Gription Sterile Latex Free [id number] - [id number] Implanted:Qty: 1 on 06/29/2023 by Javad Johnson MD at [facility] Right: Hip [employer] 04/20/2033 [id number] / / [id number] [employer] [place] 52mm 36mm Hip Neutral Liner Acetabular Altrx Sterile Latex Free [id number] - [id number] Implanted:Qty: 1 on 06/29/2023 by Javad Johnson MD at [facility] Right: Hip [employer] 01/19/2028 [id number] / / [id number] [employer] [place] 6.5mm 35mm Acetabular Cancellous Screw Bone Sterile 1217-35-500 - [id number] Implanted:Qty: 1 on 06/29/2023 by Javad Johnson MD at [facility] Right: Hip [employer] 12/18/2032 1217-35-500 / / [id number] Procedures Procedure Name Priority Date/Time Associated Diagnosis [...] CREATININE RATIO, URINE Routine 04/27/2024 9:33 AM MULTIGRAPHER Type 2 diabetes mellitus with diabetic polyneuropathy, without long-term current use of insulin (HCC) DEXA AXIAL SKELETON BONE DENSITY 1 OR MORE SITES Schedule Routine, Read Routine (OP Routine) 08/20/2022 10:33 AM CDT Osteopenia of multiple sites DIABETIC EYE EXAM Routine 03/09/2022 from Last 3 Months or Most Recently Relevant to Health Maintenance Results * eGFR (09/25/2024 12:33 PM CDT) eGFR 76 >=60 mL/min/1. 73 m2 Comment: [...] of Race in Diagnosing Kidney Disease, JASN 2020). The CKD-EPI equation should not be used for patients with unstable renal function and has not been validated in children and those over 70. Current interpretive data was last reviewed 2021. Blood 09/25/2024 12:3 3 PM CDT 09/25/2024 8:12 PM CDT us Ramya Dao NP LAB BLOOD ORDERABLES Samantha leija Result [facility] [id number] Department [place] [address] * (ABNORMAL) Lipid panel (09/25/2024 12:33 PM [...] NCEP Expert Panel. Circulation 2004;110:227 3. Jonathan Mcghee et al. MONET Cardiol. 2019July 19;5(5):540-548. doi: [email or web address] Current Interpretive Data was [...] last revised on 2017. Chol/HDL ratio 4 [facility] SHER Blood 09/25/2024 12:3 3 PM CDT 09/25/2024 7:20 PM CDT us Ramya Dao NP LAB BLOOD ORDERABLES Samantha l Result [facility] [address] Department [place] [address] * (ABNORMAL) Comprehensive metabolic panel (09/25/2024 12:33 [...] 09/25/2024 7:20 PM CDT us Ramya Dao [employer] LAB BLOOD ORDERABLES Samantha l Result Performing Organization Address City/[facility]/ZIP Co de Phone Number [facility] [address] Department [place] [address] * (ABNORMAL) POCT hemoglobin A1c (09/25/2024 11:30 AM CDT) Hemoglobin A1C, POC 8.7(A) 4.0 - 5.6 % Blood 09/25/2024 11:3 0 AM CDT Ramyajesusita Dao [employer] POINT OF CARE TEST ORDERA BLES Final Result * (ABNORMAL) POCT glucose (09/25/2024 11:30 AM CDT) Glucose Blood, POC 259 Normal Fasting 70 - 100, Random <200 mg/dL Blood 09/25/2024 11:3 0 AM CDT us Ramyajesusita Dao [employer] POINT OF CARE TEST ORDERA BLES Final [...] Albumin Creatinine Ratio, Urine (04/27/2024 9:33 AM MULTIGRAPHER) Albumin Ur 57.1 mg/L Comment: Interpretive Data No reference range established. Current interpretive data was last revised 2018. Creatinine Ur 107.1 mg/dL [facility] Comment: Interpretive Data No reference range established. Current interpretive data was last revised 2018. Albumin Creatinine Ratio, Ur 53(H) 1 - 29 mg/g [facility] Urine 04/27/2024 9:33 AM MULTIGRAPHER 04/27/2024 8:23 PM MULTIGRAPHER us Ramya Dao [employer] LAB URINE ORDERABLES Samantha l Result [facility] [address] Department [place] [address] * Dexa Axial Skeleton Bone Density 1 or 2 Site (08/20/2022 10:33 AM CDT) Anatomical Region Laterality Modality Body N/A Other 08/20/2022 9:52 PM CDT Narrative 08/20/2022 9:53 PM CDT EXAM DESCRIPTION: DEXA AXIAL SKELETON BONE DENSITY 1 OR MORE SITES REASON FOR STUDY: 77 y/o year old F with given history of screening. 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 MF: ENMANUEL Report ID: [id number] Reading Location: [place] [address] Procedure Note Azam Hein MD - 08/20/2022 EXAM DESCRIPTION: DEXA AXIAL SKELETON BONE DENSITY 1 OR MORE SITES REASON FOR STUDY: 77 y/o year old F with given history of screening. 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 MF: ENMANUEL Report ID: [id number] Reading Location: [place] [address] Susan Nava NP IMG DXA PROCEDURES Final R esult * (ABNORMAL) Diabetic Eye Exam (03/09/2022) us Historical Provider HEALTH MAINTENANCE Edited Result - Final from Last 3 Months or Most Recently Relevant to Health Maintenance Insurance [employer] Member Subscriber Plan / Payer (Ef fective 2018-Present) Name:Ninfa Smiley Relation to Subscriber:Self Name:Ninfa Smiley Payer ID:[id number] Group ID:Not on file Type:COMMERCIAL Address: [facility] [address] [place], [place] [employer] Member Subscriber Plan / Payer ( fective 2018-Present) Name:Ninfa Smiley Relation to Subscriber:Self Name:Ninfa Smiley Payer ID:[id number] Group ID:Not on file Type:COMMERCIAL Address: [address] Advance Directives For more information, please contact: [phone] * Full Code (Latest Code Status on File) Date Activated Date Inactivated Comments 06/29/2023 2:58 PM 06/30/2023 4:43 PM * Full Code Date Activated Date Inactivated Comments 02/22/2018 12:15 PM 02/22/2018 3:50 PM * Full Code Date Activated Date Inactivated Comments 04/01/2017 2:44 PM 04/03/2017 3:18 PM Care Teams Scrap Burner Relationship Specialty Start Date End Date Дмитрий Bone MD [address] [place] [address] PCP - General 06/18/16 Tejal Mcduffie, ANABELA [address] [place] [address] [address] [place] [address] [employer] In[employer] 03/04/21 Javad Johnson MD [address] [place] [address] [address] [place] [address] Surgeon Orthopedic Surgery 06/30/23
[2024-10-19 11:56] VITALS: BP 140/70; PULSE 75; RESP 18; TEMP 36.9; O2SAT 96
[2024-10-19] MEDS: LACTATED RINGERS 1,000 ML 150 ML IV CONT (11:59)
--- NOTE | 2024-10-19 12:11 | P.PNAN_ITS ---
Anes - Initial Pre Proc Eval Procedure: Operation Date: 10/19/24 12:45 Proposed Procedures p Esophagogastroduodenoscopy - Hernando Rosen MD Date/Time: 10/19/24 12:11 Surgeon: Hernando Rosen MD Pre Op Diagnosis: Epigastric pain Patient Data Age: 79 Gender: F Height: 1.52 m Weight: 68.1 kg Last Vital Signs Temp 36.9 C 10/19/24 11:56 Pulse 75 10/19/24 11:56 Resp 18 10/19/24 11:56 BP 140/70 10/19/24 11:56 Pulse Ox 96 10/19/24 11:56 O2 Del Method Room Air 10/19/24 11:56 Allergies Allergy/AdvReac Type Severity Reaction Status Date / Time acetaminophen Allergy Unknown Agitated Verified 10/18/24 14:16 adhesive tape Allergy Unknown Agitated Verified 10/18/24 14:16 propoxyphene Allergy Unknown Agitated Verified 10/18/24 14:16 Home Medications ?Medication ?Instructions ?Recorded ?Confirmed ?Type amlodipine 10 mg tablet 10 mg PO DAILY 12/22/23 10/19/24 History aspirin 81 mg tablet,delayed 81 mg PO DAILY 12/22/23 10/19/24 History release (Adult Aspirin Regimen) cetirizine 10 mg capsule (Zyrtec) 10 mg PO DAILY PRN allergy symptoms 12/22/23 10/19/24 History diclofenac sodium 1 % topical gel 2 g topical QID 12/22/23 10/19/24 History (Voltaren Arthritis Pain) duloxetine 30 mg capsule,delayed 30 mg PO DAILY 12/22/23 10/19/24 History release (Cymbalta) fluticasone propionate 50 1 spray intranasal DAILY 12/22/23 10/19/24 History mcg/actuation nasal spray,suspension (Children's Flonase Allergy Relief) levothyroxine 50 mcg capsule 50 mcg PO DAILY 12/22/23 10/19/24 History metoprolol succinate 25 mg 25 mg PO DAILY 12/22/23 10/19/24 History tablet,extended release 24 hr omeprazole 20 mg capsule,delayed 20 mg PO DAILY 12/22/23 10/19/24 History release rosuvastatin 20 mg tablet (Crestor) 20 mg PO DAILY 12/22/23 10/19/24 History sitagliptin phosphate 100 mg 100 mg PO DAILY 12/22/23 10/19/24 History tablet (Januvia) furosemide 40 mg tablet 40 mg PO QAM 07/25/24 10/19/24 History empagliflozin 10 mg tablet 10 mg PO DAILY 10/18/24 10/19/24 History (Jardiance) Laboratory Tests 10/19/24 11:53 POC Capillary Glucose 175 H mg/dl (65-105) Patient hx anesthesia problems: none Family hx anesthesia problems: none Results Review: All pre-operative results and documents have been reviewed as part of the pre- operative evaluation. [facility] Past Medical History Medical History Rectal pain GERD (gastroesophageal reflux disease) History of esophageal stricture Dysphagia Surgical History Surgical History History of anal fistulotomy Social History Social History Smoking status: Never smoker Living arrangements: [facility] care concerns: No Anes - Eval Final PreProcedure Day of Procedure 10/19/24 12:11 Patient weight: overweight Heart: regular rate and rhythm Lungs: decreased breath sounds Airway: Mallampati scale class III Neurological: alert and oriented Last oral intake: >/= 8 hours ASA classification: III Emergent: no Anesthetic plan: proceed Anesthesia type and monitoring: general GIVS and standard monitoring Results Review: All pre-operative results and documents have been reviewed as part of the pre- operative evaluation. Informed Consent: The patient's anesthetic plan and its attendant risks and benefits were discussed with the patient/family/POA. Questions were solicited and answers provided to the satisfaction of the patient/family/POA.
--- NOTE | 2024-10-19 12:28 | PM.HPGS ---
History of Present Illness History of Present Illness Consent: Risks, benefits, and alternatives have been discussed and questions answered. Patient agrees to proceed with procedure. Chief complaint: Epigastric pain Narrative: Ninfa Davis is a 79 year old female with gerd on ppi and dysphagia, h/o previous dilation Review of Systems Review of Systems: All systems reviewed & are unremarkable except as noted in HPI and below PMFSH Past Medical History Medical History Rectal pain GERD (gastroesophageal reflux disease) History of esophageal stricture Dysphagia Surgical History Surgical History History of anal fistulotomy Social History Social History Smoking status: Never smoker Living arrangements: [facility] care concerns: No Meds Home Medications and Allergies Home Medications ?Medication ?Instructions ?Recorded ?Confirmed ?Type amlodipine 10 mg tablet 10 mg PO DAILY 12/22/23 10/19/24 History aspirin 81 mg tablet,delayed 81 mg PO DAILY 12/22/23 10/19/24 History release (Adult Aspirin Regimen) cetirizine 10 mg capsule (Zyrtec) 10 mg PO DAILY PRN allergy symptoms 12/22/23 10/19/24 History diclofenac sodium 1 % topical gel 2 g topical QID 12/22/23 10/19/24 History (Voltaren Arthritis Pain) duloxetine 30 mg capsule,delayed 30 mg PO DAILY 12/22/23 10/19/24 History release (Cymbalta) fluticasone propionate 50 1 spray intranasal DAILY 12/22/23 10/19/24 History mcg/actuation nasal spray,suspension (Children's Flonase Allergy Relief) levothyroxine 50 mcg capsule 50 mcg PO DAILY 12/22/23 10/19/24 History metoprolol succinate 25 mg 25 mg PO DAILY 12/22/23 10/19/24 History tablet,extended release 24 hr omeprazole 20 mg capsule,delayed 20 mg PO DAILY 12/22/23 10/19/24 History release rosuvastatin 20 mg tablet (Crestor) 20 mg PO DAILY 12/22/23 10/19/24 History sitagliptin phosphate 100 mg 100 mg PO DAILY 12/22/23 10/19/24 History tablet (Januvia) furosemide 40 mg tablet 40 mg PO QAM 07/25/24 10/19/24 History empagliflozin 10 mg tablet 10 mg PO DAILY 10/18/24 10/19/24 History (Jardiance) Allergies Allergy/AdvReac Type Severity Reaction Status Date / Time acetaminophen Allergy Unknown Agitated Verified 10/18/24 14:16 adhesive tape Allergy Unknown Agitated Verified 10/18/24 14:16 propoxyphene Allergy Unknown Agitated Verified 10/18/24 14:16 Vital Signs Vital Signs - 24 hr 10/19/24 11:56 Temperature 98.5 F Pulse Rate 75 Respiratory Rate 18 Blood Pressure 140/70 Pulse Oximetry 96 Oxygen Delivery Room Air Exam Const: General: comfortable and no acute distress HENMT: Face/Nose/Sinus: Normal nares present Eyes: General: appearance normal, both eyes and all related structures Neck: Neck: no JVD Resp: Auscultation: clear to auscultation bilaterally Cardio: Rate: regular rate Rhythm: regular rhythm GI: Inspection: non-distended GI Palp: Yes Soft to palpation Skin: General skin exam: normal color Neuro: Speech: normal speech Extrem: General: normal to inspection Psych: Mental Status: mental status grossly normal Assessment and Plan Assessment and plan (1) Dysphagia: Code(s): R13.10 - Dysphagia, unspecified Status: Acute Assessment and Plan: egd (2) GERD (gastroesophageal reflux disease): Code(s): K21.9 - Gastro-esophageal reflux disease without esophagitis Status: Acute
[2024-10-19 12:34] VITALS: BP 163/70; PULSE 71; RESP 17; O2SAT 94
--- NOTE | 2024-10-19 12:34 | S_PTH ---
PATIENT: Ninfa Davis LOC: [facility] Silverio#:[id number] AGE/SX: 79/F ROOM: RE10/19/[address]: Hernando Rosen MD : 1945 BED: DIS: 10/19/2024 SPEC #: [id number] RECD: 10/19/24 12:59 STATUS: DAVID RELyle #: [id number] DARLEEN: 10/19/24 12:[address]: Hernando Rosen DEPT: [facility] Surgical RECD BY: Laquita Burgos ENTERED: 10/19/24 12:59 SP TYPE: Surgical OTHR DR: Дмитрий Bone, M.DNiels Tissues: A - Gastric Biopsy Procedures: Hematoxylin and Eosin Stain Gross and Microscopic Level 4
[2024-10-19 12:44] VITALS: BP 129/60; PULSE 62; RESP 18; O2SAT 96
[2024-10-19 12:54] VITALS: BP 125/70; PULSE 67; RESP 17; O2SAT 99
== END 2024-10-19 13:09 | disposition home or self-care (01) ==
PROVIDERS: PCP Family Medicine; Referring Provider Nurse Practitioner Family; Visit Provider Internal Medicine Gastroenterology
PROC: 0DJ08ZZ Inspection of Upper Intestinal Tract, Via Natural or Artificial Opening Endoscopic (ICD-10-PCS; CPT 43450; principal; 2024-10-19 12:45)
DX: K21.9 Gastro-esophageal reflux disease without esophagitis (principal); K29.50 Unspecified chronic gastritis without bleeding; K31.7 Polyp of stomach and duodenum; Z79.82 Long term (current) use of aspirin; Z79.84 Long term (current) use of oral hypoglycemic drugs; Z87.19 Personal history of other diseases of the digestive system
CPT/HCPCS: 43450; 43239; 82948; 88305; J2704; J7120